=== PATIENT | male | born 1960 | race African-American/Black ===

== ENCOUNTER 2018-09-10 17:29 | Inpatient (IN) | payer OTHER ==
[2018-09-10 20:53] VITALS: BMI 39.9
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
[2018-09-10] MEDS ORDERED: MAGNESIUM HYDROX 2400MG/30ML ORAL SUSPENSION 30 ML CUP PO PRN (22:28)
[2018-09-10] MEDS ORDERED: MENTHOL/PHENOL 1 EACH UD MM PRN (22:28)
[2018-09-10] MEDS ORDERED: MAG HYDROX/AL HYDROX/SIMETH 30 ML UNIT-DOSE CUP PO PRN (22:28)
[2018-09-10] MEDS ORDERED: LOPERAMIDE HCL 2 MG CAPSULE PO PRN (22:28)
[2018-09-10] MEDS ORDERED: NICOTINE POLACRILEX 2 MG GUM BC PRN (22:28)
[2018-09-10] MEDS ORDERED: P-EPHED 60MG/TRIPROLIDI 2.5MG TABLET PO PRN (22:28)
[2018-09-10] MEDS ORDERED: guaiFENesin/D-METHORPHAN HB 10 ML UNIT-DOSE CUPS PO PRN (22:28)
[2018-09-10] MEDS ORDERED: MAGNESIUM CITRATE 300 ML BOTTLE PO PRN (22:28)
[2018-09-10] MEDS ORDERED: ALBUTEROL SO4 8 GM HFA INHALER IH PRN (22:30)
[2018-09-10] MEDS ORDERED: METHADONE HCL 10 MG TABLET (FOR DETOX USE ONLY) PO ONE ×2 (23:00→23:04)
[2018-09-10] MEDS: diazePAM 5 MG TABLET PO PRN (23:35)
[2018-09-11] MEDS: ACETAMINOPHEN 325 MG TABLET (FP) PO PRN (01:23)
[2018-09-11] MEDS: hydrOXYzine PAMOATE 50 MG CAPSULE (FP) PO PRN (01:23)
[2018-09-11] MEDS: diazePAM 5 MG TABLET PO PRN (07:47)
[2018-09-11] MEDS ORDERED: METHADONE HCL 10 MG TABLET (FOR DETOX USE ONLY) PO ONE (10:00)
[2018-09-11] MEDS ORDERED: METHOCARBAMOL 750 MG TABLET PO SCH (10:00)
[2018-09-11 10:34] LABS: HEMATOCRIT 40.6 % (35.4-49); HEMOGLOBIN 13.4 GM/dL (11.7-16.9); MEAN CELL VOLUME 84.9 fl (80-96); MEAN PLT VOLUME 10.3 fl (7.5-11.1); PLATELET COUNT 225 K/MM3 (134-434); RBC 4.79 M/mm3 (4.00-5.60); RDW 14.4 % (11.9-15.9); WHITE BLOOD COUNT 5.8 K/mm3 (4.0-10.0)
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
[2018-09-11 10:50] LABS: ALK PHOS 103 U/L (45-117); ANION GAP 8 MMOL/L (8-16); BILIRUBIN,TOTAL 0.3 mg/dL (0.2-1); BLOOD UREA NITROGEN 19 mg/dL (7-18); CALCIUM 8.3 mg/dL (8.5-10.1); CHLORIDE 111 mmol/L (98-107); CO2 26 mmol/L (21-32); CREATININE 0.9 mg/dL (0.55-1.3); GLUCOSE,RANDOM 98 mg/dL (74-106); POTASSIUM 4.1 mmol/L (3.5-5.1); SGOT/AST 13 U/L (15-37); SGPT/ALT 20 U/L (13-61); SODIUM 144 mmol/L (136-145); TOT PROT 6.3 g/dl (6.4-8.2)
[2018-09-11] MEDS: cloNIDine HCL 0.1 MG TABLET PO SCH ×2 (11:10→22:17)
[2018-09-11] MEDS: PRENATAL VITAMINS W/ FOLIC ACID TABLET (FP) PO SCH (11:10)
[2018-09-11] MEDS: DOCUSATE SODIUM 100 MG CAPSULE (FP) PO SCH ×2 (11:10→22:18)
[2018-09-11] MEDS: ASPIRIN 81 MG CHEWABLE TABLETS PO SCH (11:10)
[2018-09-11] MEDS: NICOTINE 21 MG/24 HOURS TOPICAL PATCH TD SCH (11:11)
[2018-09-11] MEDS: amLODIPine BESYLATE 10 MG TABLET (FP) PO SCH (11:11)
--- NOTE | 2018-09-11 11:33 | PN ---
[facility] CIWA - CIWA Score Nausea/Vomitin-No Nausea/No Vomiting Muscle Tremors: 1-None Visible, but [place] Anxiety: 0-No Anxiety, at Ease Agitation: 1-Slight > Activity Paroxysmal Sweats: 1-Minimal Palms Moist Orientation: 0-Oriented Tacttile Disturbances: 0-None Auditory Disturbances: 0-None Visual Disturbances: 0-None Headache: 0-None Present CIWA-Ar Total Score: 3 S COWS - Scale Resting Pulse: 0= [place] 80 or Below Sweatin= Chills/Flushing Restless Observation: 1= Difficult to Sit Still Pupil Size: 0= Normal to Room Light Bone or Joint Aches: 1= Mild Discomfort Runny Nose/ Eye Tearin= Nasal Congestion GI Upset > 30mins: 0= None Tremor Observation of Outstretched Hands: 1= Tremor [place], Not Seen Yawning Observation: 1= 1-2x During Session Anxiety or Irritability: 1=Feels Anxious/Irritable Goose Flesh Skin: 0=Smooth Skin COWS Score: 7 [facility] Progress Note (SOAP) Subjective: headache tremor body ache low energy Objective: 09/11/18 11:37 Vital Signs Temperature 97.2 F L 09/11/18 10:56 Pulse Rate 69 09/11/18 10:56 Respiratory Rate 19 09/11/18 10:56 Blood Pressure 156/101 H 09/11/18 10:56 O2 Sat by Pulse Oximetry (%) Laboratory Last Values WBC 5.8 K/mm3 (4.0-10.0) 09/11/18 07:44 RBC 4.79 M/mm3 (4.00-5.60) 09/11/18 07:44 Hgb 13.4 GM/dL (11.7-16.9) 09/11/18 07:44 Hct 40.6 % (35.4-49) 09/11/18 07:44 MCV 84.9 fl (80-96) 09/11/18 07:44 MCH 28.0 pg (25.7-33.7) 09/11/18 07:44 MCHC 33.0 g/dl (32.0-35.9) 09/11/18 07:44 RDW 14.4 % (11.9-15.9) D 09/11/18 07:44 Plt Count 225 K/MM3 (134-434) 09/11/18 07:44 MPV 10.3 fl (7.5-11.1) 09/11/18 07:44 Sodium 144 mmol/L (136-145) 09/11/18 07:44 Potassium 4.1 mmol/L (3.5-5.1) 09/11/18 07:44 Chloride 111 mmol/L (98-107) H 09/11/18 07:44 Carbon Dioxide 26 mmol/L (21-32) 09/11/18 07:44 Anion Gap 8 MMOL/L (8-16) 09/11/18 07:44 BUN 19 mg/dL (7-18) H 09/11/18 07:44 Creatinine 0.9 mg/dL (0.55-1.3) 09/11/18 07:44 Creat Clearance w eGFR > 60 (>60) 09/11/18 07:44 Random Glucose 98 mg/dL (74-106) 09/11/18 07:44 Calcium 8.3 mg/dL (8.5-10.1) L 09/11/18 07:44 Total Bilirubin 0.3 mg/dL (0.2-1) 09/11/18 07:44 AST 13 U/L (15-37) L 09/11/18 07:44 ALT 20 U/L (13-61) 09/11/18 07:44 Alkaline Phosphatase 103 U/L (45-117) 09/11/18 07:44 Total Protein 6.3 g/dl (6.4-8.2) L 09/11/18 07:44 Albumin 3.0 g/dl (3.4-5.0) L 09/11/18 07:44 lab noted Assessment: 09/11/18 11:38 withdrawal sx hypertension Plan: continue detox
--- NOTE | 2018-09-11 11:33 | EKG ---
Test Reason : Blood Pressure : / mmHG Vent. Rate : 076 BPM Atrial Rate : 076 BPM P-R Int : 164 ms QRS Dur : 104 ms QT Int : 408 ms P-R-T Axes : 017 055 036 degrees QTc Int : 459 ms NORMAL SINUS RHYTHM NORMAL ECG NO PREVIOUS ECGS AVAILABLE Confirmed by TRENT TONEY MD ([id number]) on 09/11/2018 11:33:32 AM Referred By: Christina Echevarria Confirmed By:TRENT TONEY MD
[2018-09-11] MEDS ORDERED: FLU VACCINE QUAD 60 MCG/0.5 ML (MDV 18-19) IM ONE (12:53)
[2018-09-11] MEDS: THIAMINE HCL 100 MG TABLET (FP) PO SCH (22:17)
[2018-09-11] MEDS: METHOCARBAMOL 500 MG TABLET PO SCH (22:18)
[2018-09-11] MEDS: MELATONIN 5 MG TABLETS PO PRN (22:19)
[2018-09-12] MEDS ORDERED: METHADONE HCL 5 MG TABLET (FOR DETOX USE ONLY) PO ONE (10:00)
[2018-09-12] MEDS: ASPIRIN 81 MG CHEWABLE TABLETS PO SCH (10:24)
[2018-09-12] MEDS: cloNIDine HCL 0.1 MG TABLET PO SCH ×2 (10:25→22:20)
[2018-09-12] MEDS: amLODIPine BESYLATE 10 MG TABLET (FP) PO SCH (10:25)
[2018-09-12] MEDS: DOCUSATE SODIUM 100 MG CAPSULE (FP) PO SCH ×2 (10:25→22:21)
[2018-09-12] MEDS: METHOCARBAMOL 500 MG TABLET PO SCH ×2 (10:25→22:20)
[2018-09-12] MEDS: PRENATAL VITAMINS W/ FOLIC ACID TABLET (FP) PO SCH (10:25)
[2018-09-12] MEDS: NICOTINE 21 MG/24 HOURS TOPICAL PATCH TD SCH (10:26)
[2018-09-12 11:02] LABS: URINE APPEARANCE CLEAR; URINE BILIRUBIN NEGATIVE (<2.0 mg/dL); URINE COLOR LTYELLOW; URINE GLUCOSE (UA) NEGATIVE (NEGATIVE); URINE KETONE NEGATIVE (NEGATIVE); URINE LEUK ESTERASE NEGATIVE (NEGATIVE); URINE NITRITE NEGATIVE (NEGATIVE); URINE PROTEIN NEGATIVE (NEGATIVE); URINE UROBILINOGEN NEGATIVE mg/dL (0.2-1.0)
[2018-09-12] MEDS: diazePAM 5 MG TABLET PO PRN ×2 (12:07→20:41)
--- NOTE | 2018-09-12 15:34 | PN ---
S CIWA - CIWA Score Nausea/Vomitin-No Nausea/No Vomiting Muscle Tremors: 1-None Visible, but [place] Anxiety: 1-Mildly Anxious Agitation: 1-Slight > Activity Paroxysmal Sweats: 1-Minimal Palms Moist Orientation: 0-Oriented Tacttile Disturbances: 0-None Auditory Disturbances: 0-None Visual Disturbances: 0-None Headache: 0-None Present CIWA-Ar Total Score: 4 [facility] COWS - Scale Resting Pulse: 0= [place] 80 or Below Sweatin= Chills/Flushing Restless Observation: 0= Sits Still Pupil Size: 0= Normal to Room Light Bone or Joint Aches: 1= Mild Discomfort Runny Nose/ Eye Tearin= Nasal Congestion GI Upset > 30mins: 0= None Tremor Observation of Outstretched Hands: 1= Tremor [place], Not Seen Yawning Observation: 1= 1-2x During Session Anxiety or Irritability: 1=Feels Anxious/Irritable Goose Flesh Skin: 0=Smooth Skin COWS Score: 6 S Progress Note (SOAP) Subjective: patient reported that when he is taking opiate based pain killer then he can walk patient moving around the unit with wheelchair no gi distress mild tremor no sweat fungal feet Objective: 09/12/18 15:32 Vital Signs Temperature 98.1 F 09/12/18 13:08 Pulse Rate 67 09/12/18 13:08 Respiratory Rate 20 09/12/18 13:08 Blood Pressure 110/69 09/12/18 13:08 O2 Sat by Pulse Oximetry (%) Laboratory Last Values WBC 5.8 K/mm3 (4.0-10.0) 09/11/18 07:44 RBC 4.79 M/mm3 (4.00-5.60) 09/11/18 07:44 Hgb 13.4 GM/dL (11.7-16.9) 09/11/18 07:44 Hct 40.6 % (35.4-49) 09/11/18 07:44 MCV 84.9 fl (80-96) 09/11/18 07:44 MCH 28.0 pg (25.7-33.7) 09/11/18 07:44 MCHC 33.0 g/dl (32.0-35.9) 09/11/18 07:44 RDW 14.4 % (11.9-15.9) D 09/11/18 07:44 Plt Count 225 K/MM3 (134-434) 09/11/18 07:44 MPV 10.3 fl (7.5-11.1) 09/11/18 07:44 Sodium 144 mmol/L (136-145) 09/11/18 07:44 Potassium 4.1 mmol/L (3.5-5.1) 09/11/18 07:44 Chloride 111 mmol/L (98-107) H 09/11/18 07:44 Carbon Dioxide 26 mmol/L (21-32) 09/11/18 07:44 Anion Gap 8 MMOL/L (8-16) 09/11/18 07:44 BUN 19 mg/dL (7-18) H 09/11/18 07:44 Creatinine 0.9 mg/dL (0.55-1.3) 09/11/18 07:44 Creat Clearance w eGFR > 60 (>60) 09/11/18 07:44 Random Glucose 98 mg/dL (74-106) 09/11/18 07:44 Calcium 8.3 mg/dL (8.5-10.1) L 09/11/18 07:44 Total Bilirubin 0.3 mg/dL (0.2-1) 09/11/18 07:44 AST 13 U/L (15-37) L 09/11/18 07:44 ALT 20 U/L (13-61) 09/11/18 07:44 Alkaline Phosphatase 103 U/L (45-117) 09/11/18 07:44 Total Protein 6.3 g/dl (6.4-8.2) L 09/11/18 07:44 Albumin 3.0 g/dl (3.4-5.0) L 09/11/18 07:44 Urine Color Ltyellow 09/12/18 08:00 Urine Appearance Clear 09/12/18 08:00 Urine pH 5.0 (5.0-8.0) 09/12/18 08:00 Ur Specific [place] 1.018 (1.010-1.035) 09/12/18 08:00 Urine Protein Negative (NEGATIVE) 09/12/18 08:00 Urine Glucose (UA) Negative (NEGATIVE) 09/12/18 08:00 Urine Ketones Negative (NEGATIVE) 09/12/18 08:00 Urine Blood Negative (NEGATIVE) 09/12/18 08:00 Urine Nitrite Negative (NEGATIVE) 09/12/18 08:00 Urine Bilirubin Negative (<2.0 mg/dL) 09/12/18 08:00 Urine Urobilinogen Negative mg/dL (0.2-1.0) 09/12/18 08:00 Ur Leukocyte Esterase Negative (NEGATIVE) 09/12/18 08:00 RPR Titer Nonreactive (NONREACTIVE) 09/11/18 07:44 lab noted Assessment: 09/12/18 15:33 withdrawal sx fungal feet Plan: continue detox clotrimazole cream to feet wheel chair as needed
[2018-09-12] MEDS: ACETAMINOPHEN 325 MG TABLET (FP) PO PRN (20:41)
[2018-09-12] MEDS: hydrOXYzine PAMOATE 50 MG CAPSULE (FP) PO PRN (20:42)
[2018-09-12] MEDS: THIAMINE HCL 100 MG TABLET (FP) PO SCH (22:20)
[2018-09-12] MEDS: CLOTRIMAZOLE 1% CREAM 15 GM TUBE TP SCH (22:21)
[2018-09-13] MEDS ORDERED: METHADONE HCL 5 MG TABLET (FOR DETOX USE ONLY) PO ONE (10:00)
[2018-09-13] MEDS: CLOTRIMAZOLE 1% CREAM 15 GM TUBE TP SCH ×2 (10:09→23:08)
[2018-09-13] MEDS: NICOTINE 21 MG/24 HOURS TOPICAL PATCH TD SCH (10:09)
[2018-09-13] MEDS: ASPIRIN 81 MG CHEWABLE TABLETS PO SCH (10:10)
[2018-09-13] MEDS: cloNIDine HCL 0.1 MG TABLET PO SCH ×2 (10:10→23:07)
[2018-09-13] MEDS: DOCUSATE SODIUM 100 MG CAPSULE (FP) PO SCH ×2 (10:10→23:07)
[2018-09-13] MEDS: amLODIPine BESYLATE 10 MG TABLET (FP) PO SCH (10:10)
[2018-09-13] MEDS: PRENATAL VITAMINS W/ FOLIC ACID TABLET (FP) PO SCH (10:10)
[2018-09-13] MEDS: METHOCARBAMOL 500 MG TABLET PO SCH (10:10)
--- NOTE | 2018-09-13 10:37 | PN ---
[facility] Progress Note (SOAP) Subjective: chronic knee pain body aches sweats interrupted sleep chills Objective: 09/13/18 10:36 Vital Signs Temperature 98.8 F 09/13/18 09:46 Pulse Rate 72 09/13/18 09:46 Respiratory Rate 20 09/13/18 09:46 Blood Pressure 145/85 09/13/18 09:46 O2 Sat by Pulse Oximetry (%) Laboratory Tests 09/11/18 09/11/18 09/11/18 07:44 07:44 07:44 WBC 5.8 RBC 4.79 Hgb 13.4 Hct 40.6 MCV 84.9 MCH 28.0 MCHC 33.0 RDW 14.4 D Plt Count 225 MPV 10.3 Sodium 144 Potassium 4.1 Chloride 111 H Carbon Dioxide 26 Anion Gap 8 BUN 19 H Creatinine 0.9 Creat Clearance w eGFR > 60 Random Glucose 98 Calcium 8.3 L Total Bilirubin 0.3 AST 13 L ALT 20 Alkaline Phosphatase 103 Total Protein 6.3 L Albumin 3.0 L Urine Color Urine Appearance Urine pH Ur Specific [place] Urine Protein Urine Glucose (UA) Urine Ketones Urine Blood Urine Nitrite Urine Bilirubin Urine Urobilinogen Ur Leukocyte Esterase RPR Titer Nonreactive 09/12/18 08:00 WBC RBC Hgb Hct MCV MCH MCHC RDW Plt Count MPV Sodium Potassium Chloride Carbon Dioxide Anion Gap BUN Creatinine Creat Clearance w eGFR Random Glucose Calcium Total Bilirubin AST ALT Alkaline Phosphatase Total Protein Albumin Urine Color Ltyellow Urine Appearance Clear Urine pH 5.0 Ur Specific [place] 1.018 Urine Protein Negative Urine Glucose (UA) Negative Urine Ketones Negative Urine Blood Negative Urine Nitrite Negative Urine Bilirubin Negative Urine Urobilinogen Negative Ur Leukocyte Esterase Negative RPR Titer aaox3 ambulating no acute distress Assessment: 09/13/18 10:36 withdrawal sx Plan: continue detox increase fluids lidocaine patch ordered pt will continue with robaxin as ordered
[2018-09-13] MEDS ORDERED: LIDOCAINE 5% TOPICAL PATCH TP SCH (10:45)
[2018-09-13] MEDS: LIDOCAINE 5% TOPICAL PATCH TP SCH (12:39)
[2018-09-13] MEDS: diazePAM 5 MG TABLET PO PRN (17:34)
[2018-09-13] MEDS ORDERED: LIDOCAINE PATCH REMOVAL MC SCH ×2 (22:00)
[2018-09-13] MEDS: THIAMINE HCL 100 MG TABLET (FP) PO SCH (23:07)
[2018-09-13] MEDS: LIDOCAINE PATCH REMOVAL MC SCH (23:08)
[2018-09-13] MEDS: hydrOXYzine PAMOATE 50 MG CAPSULE (FP) PO PRN (23:18)
[2018-09-13] MEDS: MELATONIN 5 MG TABLETS PO PRN (23:18)
[2018-09-14] MEDS: hydrOXYzine PAMOATE 50 MG CAPSULE (FP) PO PRN (06:22)
[2018-09-14] MEDS: CYCLOBENZAPRINE HCL 10 MG TABLET (FP) PO PRN ×2 (06:22→23:53)
[2018-09-14] MEDS: IBUPROFEN 400 MG TABLET (FP) PO PRN ×2 (06:22→23:53)
[2018-09-14] MEDS ORDERED: METHADONE HCL 10 MG TABLET (FOR DETOX USE ONLY) PO ONE (10:00)
[2018-09-14] MEDS: cloNIDine HCL 0.1 MG TABLET PO SCH ×2 (10:43→23:50)
[2018-09-14] MEDS: DOCUSATE SODIUM 100 MG CAPSULE (FP) PO SCH ×2 (10:44→23:50)
[2018-09-14] MEDS: amLODIPine BESYLATE 10 MG TABLET (FP) PO SCH (10:44)
[2018-09-14] MEDS: CLOTRIMAZOLE 1% CREAM 15 GM TUBE TP SCH ×2 (10:44→23:49)
[2018-09-14] MEDS: PRENATAL VITAMINS W/ FOLIC ACID TABLET (FP) PO SCH (10:44)
[2018-09-14] MEDS: ASPIRIN 81 MG CHEWABLE TABLETS PO SCH (10:44)
[2018-09-14] MEDS: LIDOCAINE 5% TOPICAL PATCH TP SCH (10:47)
[2018-09-14] MEDS: NICOTINE 21 MG/24 HOURS TOPICAL PATCH TD SCH (10:47)
--- NOTE | 2018-09-14 15:21 | PN ---
[facility] Progress Note (SOAP) Subjective: feeling better no tremor less sweat no body aches ambulate with wheelchair Objective: 09/14/18 15:20 Vital Signs Temperature 97.7 F 09/14/18 14:00 Pulse Rate 73 09/14/18 14:00 Respiratory Rate 18 09/14/18 14:00 Blood Pressure 134/71 09/14/18 14:00 O2 Sat by Pulse Oximetry (%) Laboratory Last Values WBC 5.8 K/mm3 (4.0-10.0) 09/11/18 07:44 RBC 4.79 M/mm3 (4.00-5.60) 09/11/18 07:44 Hgb 13.4 GM/dL (11.7-16.9) 09/11/18 07:44 Hct 40.6 % (35.4-49) 09/11/18 07:44 MCV 84.9 fl (80-96) 09/11/18 07:44 MCH 28.0 pg (25.7-33.7) 09/11/18 07:44 MCHC 33.0 g/dl (32.0-35.9) 09/11/18 07:44 RDW 14.4 % (11.9-15.9) D 09/11/18 07:44 Plt Count 225 K/MM3 (134-434) 09/11/18 07:44 MPV 10.3 fl (7.5-11.1) 09/11/18 07:44 Sodium 144 mmol/L (136-145) 09/11/18 07:44 Potassium 4.1 mmol/L (3.5-5.1) 09/11/18 07:44 Chloride 111 mmol/L (98-107) H 09/11/18 07:44 Carbon Dioxide 26 mmol/L (21-32) 09/11/18 07:44 Anion Gap 8 MMOL/L (8-16) 09/11/18 07:44 BUN 19 mg/dL (7-18) H 09/11/18 07:44 Creatinine 0.9 mg/dL (0.55-1.3) 09/11/18 07:44 Creat Clearance w eGFR > 60 (>60) 09/11/18 07:44 Random Glucose 98 mg/dL (74-106) 09/11/18 07:44 Calcium 8.3 mg/dL (8.5-10.1) L 09/11/18 07:44 Total Bilirubin 0.3 mg/dL (0.2-1) 09/11/18 07:44 AST 13 U/L (15-37) L 09/11/18 07:44 ALT 20 U/L (13-61) 09/11/18 07:44 Alkaline Phosphatase 103 U/L (45-117) 09/11/18 07:44 Total Protein 6.3 g/dl (6.4-8.2) L 09/11/18 07:44 Albumin 3.0 g/dl (3.4-5.0) L 09/11/18 07:44 Urine Color Ltyellow 09/12/18 08:00 Urine Appearance Clear 09/12/18 08:00 Urine pH 5.0 (5.0-8.0) 09/12/18 08:00 Ur Specific [place] 1.018 (1.010-1.035) 09/12/18 08:00 Urine Protein Negative (NEGATIVE) 09/12/18 08:00 Urine Glucose (UA) Negative (NEGATIVE) 09/12/18 08:00 Urine Ketones Negative (NEGATIVE) 09/12/18 08:00 Urine Blood Negative (NEGATIVE) 09/12/18 08:00 Urine Nitrite Negative (NEGATIVE) 09/12/18 08:00 Urine Bilirubin Negative (<2.0 mg/dL) 09/12/18 08:00 Urine Urobilinogen Negative mg/dL (0.2-1.0) 09/12/18 08:00 Ur Leukocyte Esterase Negative (NEGATIVE) 09/12/18 08:00 RPR Titer Nonreactive (NONREACTIVE) 09/11/18 07:44 lab noted Assessment: 09/14/18 15:21 mild withdrawal sx Plan: medically supervised detox
[2018-09-14] MEDS: LIDOCAINE PATCH REMOVAL MC SCH (23:49)
[2018-09-14] MEDS: THIAMINE HCL 100 MG TABLET (FP) PO SCH (23:49)
[2018-09-14] MEDS: MELATONIN 5 MG TABLETS PO PRN (23:53)
[2018-09-15] MEDS ORDERED: METHADONE HCL 5 MG TABLET (FOR DETOX USE ONLY) PO ONE (06:00)
[2018-09-15 07:30] VITALS: TEMP 97.5
[2018-09-15 09:52] VITALS: BP 133/76; PULSE 76
--- NOTE | 2018-09-15 14:19 | DS ---
[facility] Detox Discharge Summary Admission Date: 09/10/18 Discharge Date: 09/15/18 - History Present History: Alcohol Dependence, Opioid Dependence Additional Comments: 58 years old male admitted on 09/10/18 for alcohol and opiate withdrawal sx completed detox regimen tolerated well denies alcohol opiate withdrawal sx alert oriented x 3 no acute distress aftercare revelation patient wants to go home today - Physical Exam Results Vital Signs: Vital Signs Temperature 97.5 F L 09/15/18 08:55 Pulse Rate 76 09/15/18 08:55 Respiratory Rate 18 09/15/18 08:55 Blood Pressure 133/76 09/15/18 08:55 O2 Sat by Pulse Oximetry (%) Pertinent Admission Physical Exam Findings: alcohol and opiate withdrawal sx Vital Signs Temperature 97.5 F L 09/15/18 08:55 Pulse Rate 76 09/15/18 08:55 Respiratory Rate 18 09/15/18 08:55 Blood Pressure 133/76 09/15/18 08:55 O2 Sat by Pulse Oximetry (%) Laboratory Last Values WBC 5.8 K/mm3 (4.0-10.0) 09/11/18 07:44 RBC 4.79 M/mm3 (4.00-5.60) 09/11/18 07:44 Hgb 13.4 GM/dL (11.7-16.9) 09/11/18 07:44 Hct 40.6 % (35.4-49) 09/11/18 07:44 MCV 84.9 fl (80-96) 09/11/18 07:44 MCH 28.0 pg (25.7-33.7) 09/11/18 07:44 MCHC 33.0 g/dl (32.0-35.9) 09/11/18 07:44 RDW 14.4 % (11.9-15.9) D 09/11/18 07:44 Plt Count 225 K/MM3 (134-434) 09/11/18 07:44 MPV 10.3 fl (7.5-11.1) 09/11/18 07:44 Sodium 144 mmol/L (136-145) 09/11/18 07:44 Potassium 4.1 mmol/L (3.5-5.1) 09/11/18 07:44 Chloride 111 mmol/L (98-107) H 09/11/18 07:44 Carbon Dioxide 26 mmol/L (21-32) 09/11/18 07:44 Anion Gap 8 MMOL/L (8-16) 09/11/18 07:44 BUN 19 mg/dL (7-18) H 09/11/18 07:44 Creatinine 0.9 mg/dL (0.55-1.3) 11 07:44 Creat Clearance w eGFR > 60 (>60) 09/11/18 07:44 Random Glucose 98 mg/dL (74-106) 09/11/18 07:44 Calcium 8.3 mg/dL (8.5-10.1) L 09/11/18 07:44 Total Bilirubin 0.3 mg/dL (0.2-1) 09/11/18 07:44 AST 13 U/L (15-37) L 09/11/18 07:44 ALT 20 U/L (13-61) 09/11/18 07:44 Alkaline Phosphatase 103 U/L (45-117) 09/11/18 07:44 Total Protein 6.3 g/dl (6.4-8.2) L 09/11/18 07:44 Albumin 3.0 g/dl (3.4-5.0) L 09/11/18 07:44 Urine Color Ltyellow 09/12/18 08:00 Urine Appearance Clear 09/12/18 08:00 Urine pH 5.0 (5.0-8.0) 09/12/18 08:00 Ur Specific [place] 1.018 (1.010-1.035) 09/12/18 08:00 Urine Protein Negative (NEGATIVE) 09/12/18 08:00 Urine Glucose (UA) Negative (NEGATIVE) 09/12/18 08:00 Urine Ketones Negative (NEGATIVE) 09/12/18 08:00 Urine Blood Negative (NEGATIVE) 09/12/18 08:00 Urine Nitrite Negative (NEGATIVE) 09/12/18 08:00 Urine Bilirubin Negative (<2.0 mg/dL) 09/12/18 08:00 Urine Urobilinogen Negative mg/dL (0.2-1.0) 09/12/18 08:00 Ur Leukocyte Esterase Negative (NEGATIVE) 09/12/18 08:00 RPR Titer Nonreactive (NONREACTIVE) 11/04/18 07:44 lab noted - Treatment Hospital Course: Detox Protocol Followed, Detoxed Safely, Responded well, Discharged Condition Good, Rehab Referral Accepted Patient has Accepted a Rehab Referral to: [facility] - Medication Discharge Medications: Ambulatory Orders Aspirin 81 mg PO DAILY 09/10/18 Baclofen 20 mg PO TID 09/10/18 Docusate Sodium [Colace] 100 mg PO BID 09/10/18 Methocarbamol [Robaxin -] 750 mg PO BID 09/10/18 Albuterol Sulfate Inhaler - [Ventolin HFA Inhaler -] 1 puff IH PRN #1 inhaler Amlodipine Besylate [Norvasc -] 10 mg PO DAILY #14 tablet 09/14/18 cloNIDine HCL [Catapres -] 0.3 mg PO BID #14 tablet 09/14/18 - Diagnosis (1) Opioid dependence with withdrawal Status: Acute (2) Uncomplicated alcohol dependence Status: Acute (3) HTN (hypertension) Status: Chronic Qualifiers: Hypertension type: essential hypertension Qualified Code(s): I10 - Essential (primary) hypertension (4) Substance induced mood disorder Status: Suspected - AMA Did Patient Leave Against Medical Advice: No
== END 2018-09-15 09:00 | disposition home or self-care (01) | DRG 773 ==
LOC: YASAS 17:29 → Y6N 21:59
PROC: HZ2ZZZZ Detoxification Services for Substance Abuse Treatment (ICD-10-PCS; principal; 2018-09-10)
DX: F11.23 Opioid dependence with withdrawal (principal); F10.230 Alcohol dependence with withdrawal, uncomplicated; F13.230 Sedative, hypnotic or anxiolytic dependence with withdrawal, uncomplicated; F12.10 Cannabis abuse, uncomplicated; F17.210 Nicotine dependence, cigarettes, uncomplicated; F19.24 Other psychoactive substance dependence with psychoactive substance-induced mood disorder; F19.282 Other psychoactive substance dependence with psychoactive substance-induced sleep disorder; I10 Essential (primary) hypertension; B35.1 Tinea unguium; E66.9 Obesity, unspecified; Z68.39 Body mass index [BMI] 39.0-39.9, adult; Z99.3 Dependence on wheelchair; Z87.438 Personal history of other diseases of male genital organs; Z59.0 Homelessness
CPT/HCPCS: 36415; 80053; 81003; 85027; 86593; 93005; 93010; J0735

== ENCOUNTER 2018-11-15 13:40 | Inpatient (IN) | payer OTHER ==
--- NOTE | 2018-11-15 14:58 | HP ---
Screened but not Admitted - Documentation of Visit Screened but not Admitted: Yes Level of Care Recommended at this Time: ER Evaluation/Care Additional Information/Explanation: this 58 years old male present in [facility] for evaluation. patient has alter mental status bp 141/69,p67,r18,t98.5,puse ox 90% . pupil constricted both side,. narcan 0.8 mg im given. patient to be transfer to [facility] for evaluation and stabilization. case endorsed to by
[2018-11-15 23:55] VITALS: BMI 38.5
--- NOTE | 2018-11-16 | HP ---
COWS - Scale Resting Pulse: 0= ID 80 or Below Sweatin=Flushed/Facial Moisture Restless Observation: 5= Unable to Sit Still Pupil Size: 0= Normal to Room Light Bone or Joint Aches: 4=Acute Joint/Muscle Pain Runny Nose/ Eye Tearin= Runny Nose/Eyes GI Upset > 30mins: 0= None Tremor Observation: 0= None Yawning Observation: 0= None Anxiety or Irritability: 2=Irritable/Anxious Goose Flesh Skin: 0=Smooth Skin COWS Score: 15 CIWA Score Nausea/Vomitin-No Nausea/No Vomiting Muscle Tremors: None Anxiety: 4-Mod. Anxious/Guarded Agitation: 4-Moderately Restless Paroxysmal Sweats: 3 Orientation: 0-Oriented Tacttile Disturbances: 0-None Auditory Disturbances: 1-Very Mild Visual Disturbances: 2-Mild Sensitivity Headache: 2-Mild CIWA-Ar Total Score: 16 - Admission Criteria [facility] Guidelines: Admission for Medically Managed Detox: Requires at least one of the followin. CIWA greater than 12 2. Seizures within the past 24 hours 3. Delirium tremens within the past 24 hours 4. Hallucinations within the past 24 hours 5. Acute intervention needed for co occurring medical disorder 6. Acute intervention needed for co occurring psychiatric disorder 7. Severe withdrawal that cannot be handled at a lower level of care (continued vomiting, continued diarrhea, abnormal vital signs) requiring intravenous medication and/or fluids 8. Admission [facility] Chief Complaint: c/o withdraWAL SX'S. SEEKING DETOX TXMENT Allergies/Adverse Reactions: Allergies Allergy/AdvReac Type Severity Reaction Status Date / Time No Known Allergies Allergy Verified 11/16/18 00:54 History of Present Illness: 58 Y.O. MALE WITH POLYSUBSTANCE ABUSE RETURNS FROM ER AFTER BEING SENT THEIR EARLIER FOR ? OVERDOSE/INTOXICATION. THE CLIENT HAS SINCE BEEN STABILIZED AND RETURNED FOR TXMENT. CLIENT IS KNOWN TO THIS PROGRAM. SELF REFERRED. C/O WORSENING WITHDRAWAL SX'S COWS/15/CIWA 16. REPORTS LONGEST CLEAN TIME 3 YEARS WHILE INCARCERATED. DENIES RECENT CLEAN TIME. DENIES PAST/ PRESENT SI/HI/AVH. DENIES SEIZURES. HOMELESS,UNEMPLOYED, DENIES LEGALS. PMHX- DJD, HTN, PSYCH- ANXIETY, DEPRESSION, MEDS- NORVASC 10, CLONIDINE .3MG Exam Limitations: Physical Impairment (DJD WC BOUND) - Ebola screening Have you traveled outside of the country in the last 21 days: No Have you had contact with anyone from an Ebola affected area: No Do you have a fever: No - Review of Systems Constitutional: Chills, Night Sweats EENT: reports: Dental Problems (MISSING TEETH), Other (DRY EYES) Respiratory: reports: No Symptoms reported Cardiac: reports: No Symptoms Reported GI: reports: Poor Appetite, Poor Fluid Intake : reports: Frequency Musculoskeletal: reports: Back Pain, Joint Pain, Muscle Weakness Integumentary: reports: No Symptoms Reported Neuro: reports: Headache, Weakness, Unsteady Gait Endocrine: reports: No Symptoms Reported Hematology: reports: No Symptoms Reported Psychiatric: reports: Anxious, Depressed Other Systems: Reviewed and Negative Patient History - Patient Medical History Hx Anemia: No Hx Asthma: No Hx Chronic Obstructive Pulmonary Disease (COPD): No Hx Cancer: No Hx Cardiac Disorders: No Hx Congestive Heart Failure: No Hx Hypertension: Yes (ON MEDS) Hx Hypercholesterolemia: No Hx Pacemaker: No HX Cerebrovascular Accident: No Hx Seizures: No Hx Dementia: No Hx Diabetes: No Hx Gastrointestinal Disorders: No Hx Liver Disease: No Hx Genitourinary Disorders: No Hx Sexually Transmitted Disorders: Yes (GONORRHEA AT AGE OF 18) Hx Renal Disease (ESRD): No Hx Thyroid Disease: No Hx Human Immunodeficiency Virus (HIV): No Hx Hepatitis C: No Hx Depression: Yes Hx Suicide Attempt: No Hx Bipolar Disorder: No Hx Schizophrenia: No Other Medical History: DJD - Patient Surgical History Past Surgical History: Yes Hx Neurologic Surgery: No Hx Cataract Extraction: No Hx Cardiac Surgery: No Hx Lung Surgery: Yes (COLLAPSE LT LUNG 1987) Hx Breast Surgery: No Hx Breast Biopsy: No Hx Abdominal Surgery: No Hx Appendectomy: No Hx Cholecystectomy: No Hx Genitourinary Surgery: No Hx Section: No Hx Orthopedic Surgery: No Anesthesia Reaction: No - PPD History Previous Implant?: Yes Documented Results: Negative w/proof Implanted On Prior R Admission?: Yes Date: 09/12/18 Results: 0MM PPD to be Administered?: No - Smoking Cessation Smoking history: Current every day smoker Have you smoked in the past 12 months: Yes Aproximately how many cigarettes per day: 15 Cigars Per Day: 0 Hx Chewing Tobacco Use: No Initiated information on smoking cessation: Yes 'Breaking Loose' booklet given: 11/16/18 - Substance & Tx. History Hx Alcohol Use: Yes Hx Substance Use: Yes Substance Use Type: Alcohol, Cocaine, Heroin, Marijuana Hx Substance Use Treatment: Yes ([facility]) - Substances Abused HEROIN Route: Injection Frequency: 3-6 times per week Amount used: 15 Age of first use: 28 Date of Last Use: 11/14/18 AUGUSTO Route: Oral Frequency: Daily Amount used: 2 PINTS Age of first use: 16 Date of Last Use: 11/14/18 COCAINE Route: Injection Frequency: Daily Amount used: $1000 Age of first use: 28 Date of Last Use: 11/14/18 Family Disease History - Family Disease History Family Disease History: Other: Brother (DRUGS), Sister (DRUGS) Admission Physical Exam [facility] - Physical General Appearance: Yes: Disheveled, Obese, Irritable, Other (FALING ASLEEP DURING THE INTERVIEW/ EASILY AROUSABLE WITH VERBAL STIMULI) HEENTM: Yes: EOMI, Normocephalic, Normal Voice, Pharynx Normal, Other (VERY SMALL PUPILS ( ALL MOST [place] LIKE)) Respiratory: Yes: Chest Non-Tender, Lungs Clear, No Respiratory Distress, No Accessory Muscle Use Neck: Yes: No masses,lesions,Nodules, Supple, Trachea in good position Breast: Yes: Breast Exam Deferred Cardiology: Yes: Regular Rhythm, Regular Rate, S1, S2 Abdominal: Yes: Non Tender, Soft, Increased Bowel Sounds, Protuberent Genitourinary: Yes: Frequency, Polyuria (REPORTS) Back: Yes: Normal Inspection Musculoskeletal: Yes: Joint Stiffness, Other (W/C BOUND) Extremities: Yes: Non-Tender, Pedal Edema (BLLE), Other (LIMITED ROM 2/2 JOINT PAIN) Neurological: Yes: Fully Oriented, Alert Integumentary: Yes: Normal Color, Dry, Warm, Pitting Edema (BLLE 2+) Lymphatic: Yes: Within Normal Limits - Diagnostic (1) IVDU (intravenous drug user) Current Visit: Yes Status: Acute (2) DJD (degenerative joint disease) Current Visit: Yes Status: Acute (3) Alcohol dependence with uncomplicated withdrawal Current Visit: Yes Status: Acute (4) Cocaine abuse, uncomplicated Current Visit: Yes Status: Chronic (5) Opioid dependence with withdrawal Current Visit: Yes Status: Acute (6) Polysubstance abuse Current Visit: Yes Status: Acute (7) HTN (hypertension) Current Visit: Yes Status: Chronic Qualifiers: Hypertension type: essential hypertension Qualified Code(s): I10 - Essential (primary) hypertension (8) History of asthma Current Visit: Yes Status: Chronic (9) Impaired mobility Current Visit: Yes Status: Chronic (10) Nicotine dependence Current Visit: Yes Status: Chronic Qualifiers: Nicotine product type: cigarettes Substance use status: uncomplicated Qualified Code(s): F17.210 - Nicotine dependence, cigarettes, uncomplicated (11) Obese Current Visit: Yes Status: Chronic Qualifiers: Obesity classification: adult class 2 (BMI 35 - 39.9) (12) Unsteady gait Current Visit: Yes Status: Chronic (13) Wheelchair bound Current Visit: Yes Status: Chronic (14) Substance induced mood disorder Current Visit: Yes Status: Chronic Cleared for Admission [facility] - Detox or Rehab [facility] Level of Care: Medically Managed Detox Regimen/Protocol: Methadone/Librium (WILL START ADJUST METHADONE REGIMEN 2 /2 ?OVERDOSE AND PINPOINT LIKE PUPILS DESPITE COWS SCORE. HOLD LIBRIUM FOR OVERSEDATION) Claeared for Rehab Admission: No S Breath Alcohol Content Breath Alcohol Content: 0
[2018-11-16] MEDS ORDERED: hydrOXYzine PAMOATE 50 MG CAPSULE (FP) PO PRN (00:29)
[2018-11-16] MEDS ORDERED: P-EPHED 60MG/TRIPROLIDI 2.5MG TABLET PO PRN (00:29)
[2018-11-16] MEDS ORDERED: MAGNESIUM CITRATE 300 ML BOTTLE PO PRN (00:29)
[2018-11-16] MEDS ORDERED: MAGNESIUM HYDROX 2400MG/30ML ORAL SUSPENSION 30 ML CUP PO PRN (00:29)
[2018-11-16] MEDS ORDERED: ACETAMINOPHEN 325 MG TABLET (FP) PO PRN (00:29)
[2018-11-16] MEDS ORDERED: LOPERAMIDE HCL 2 MG CAPSULE PO PRN (00:29)
[2018-11-16] MEDS ORDERED: IBUPROFEN 400 MG TABLET (FP) PO PRN (00:29)
[2018-11-16] MEDS ORDERED: NICOTINE POLACRILEX 4 MG GUM BC PRN (00:29)
[2018-11-16] MEDS ORDERED: guaiFENesin/D-METHORPHAN HB 10 ML UNIT-DOSE CUPS PO PRN (00:29)
[2018-11-16] MEDS ORDERED: MENTHOL/PHENOL 1 EACH UD MM PRN (00:29)
[2018-11-16] MEDS ORDERED: MAG HYDROX/AL HYDROX/SIMETH 30 ML UNIT-DOSE CUP PO PRN (00:29)
[2018-11-16] MEDS ORDERED: cloNIDine HCL 0.1 MG TABLET PO ONE (00:40)
[2018-11-16] MEDS: chlordiazePOXIDE HCL 25 MG CAPSULE PO PRN ×2 (01:01→07:20)
[2018-11-16] MEDS ORDERED: PATIENT'S OWN MEDICATION (NON-FORMULARY) (Baclofen [Baclofen] 20 MG) PO SCH (06:00)
[2018-11-16] MEDS: chlordiazePOXIDE HCL 25 MG CAPSULE PO SCH ×4 (06:44→22:21)
--- NOTE | 2018-11-16 07:50 | PN ---
S Progress Note Note: CLIENT SEEN OOB THIS MORNING SELF PROPELLING IN WC. A/O X3 C/O WITHDRAWAL SX'S REQUESTING MEDS. UNEVENTFUL OVERNIGHT, SLEPT QUIETLY Last Vital Signs Temp Pulse Resp BP Pulse Ox 97 F L 65 20 160/95 11/16/18 06:21 11/16/18 06:21 11/16/18 06:21 11/16/18 06:21
[2018-11-16] MEDS ORDERED: METHADONE HCL 10 MG TABLET (FOR DETOX USE ONLY) PO ONE (10:00)
[2018-11-16 10:04] LABS: ALK PHOS 96 U/L (45-117); ANION GAP 7 MMOL/L (8-16); BILIRUBIN,TOTAL 0.4 mg/dL (0.2-1); BLOOD UREA NITROGEN 19 mg/dL (7-18); CALCIUM 8.7 mg/dL (8.5-10.1); CHLORIDE 109 mmol/L (98-107); CO2 27 mmol/L (21-32); CREATININE 0.9 mg/dL (0.55-1.3); GLUCOSE,RANDOM 83 mg/dL (74-106); POTASSIUM 4.4 mmol/L (3.5-5.1); SGOT/AST 12 U/L (15-37); SGPT/ALT 16 U/L (13-61); SODIUM 143 mmol/L (136-145); TOT PROT 6.2 g/dl (6.4-8.2)
[2018-11-16 10:25] LABS: HEMATOCRIT 40.8 % (35.4-49); HEMOGLOBIN 12.5 GM/dL (11.7-16.9); MCHC 30.7 g/dl (32.0-35.9); MEAN CELL VOLUME 84.8 fl (80-96); MEAN PLT VOLUME 10.4 fl (7.5-11.1); PLATELET COUNT 207 K/MM3 (134-434); RBC 4.82 M/mm3 (4.00-5.60); WHITE BLOOD COUNT 5.7 K/mm3 (4.0-10.0)
[2018-11-16] MEDS: amLODIPine BESYLATE 10 MG TABLET (FP) PO SCH (10:44)
[2018-11-16] MEDS: METHOCARBAMOL 750 MG TABLET PO SCH ×2 (10:44→22:21)
[2018-11-16] MEDS: HYDROCHLOROTHIAZIDE 25 MG TABLET (FP) PO SCH (10:44)
[2018-11-16] MEDS: DOCUSATE SODIUM 100 MG CAPSULE (FP) PO SCH ×2 (10:44→22:21)
[2018-11-16] MEDS: PRENATAL VITAMINS W/ FOLIC ACID TABLET (FP) PO SCH (10:44)
[2018-11-16] MEDS: NICOTINE 21 MG/24 HOURS TOPICAL PATCH TD SCH (10:45)
--- NOTE | 2018-11-16 11:35 | PN ---
S CIWA - CIWA Score Nausea/Vomitin-Mild Nausea/No Vomiting Muscle Tremors: None Anxiety: 4-Mod. Anxious/Guarded Agitation: 0-Normal Activity Paroxysmal Sweats: 2 Orientation: 0-Oriented Tacttile Disturbances: 3-Moderate Itch/Numb/Burn Auditory Disturbances: 0-None Visual Disturbances: 0-None Headache: 0-None Present CIWA-Ar Total Score: 10 BHS COWS - Scale Resting Pulse: 0= PA 80 or Below Sweatin=Flushed/Facial Moisture Restless Observation: 0= Sits Still Pupil Size: 1= Pupils >than Normal Bone or Joint Aches: 2= Severe Diffuse Aches Runny Nose/ Eye Tearin= None GI Upset > 30mins: 2= Nausea/Diarrhea Tremor Observation of Outstretched Hands: 0= None Yawning Observation: 1= 1-2x During Session Anxiety or Irritability: 2=Irritable/Anxious Goose Flesh Skin: 0=Smooth Skin COWS Score: 10 BHS Progress Note (SOAP) Subjective: PATIENT C/O ANXIETY, SWEATING, FEELING TIRED AND BURNING SENSATION TO FEET. Objective: 11/16/18 12:09 Vital Signs Temperature 98.1 F 11/16/18 09:15 Pulse Rate 77 11/16/18 09:15 Respiratory Rate 20 11/16/18 09:15 Blood Pressure 167/99 11/16/18 09:15 O2 Sat by Pulse Oximetry (%) Laboratory Tests 11/16/18 11/16/18 11/16/18 07:00 07:00 07:00 WBC 5.7 RBC 4.82 Hgb 12.5 Hct 40.8 MCV 84.8 MCH 26.0 MCHC 30.7 L RDW 15.0 Plt Count 207 MPV 10.4 Sodium 143 Potassium 4.4 Chloride 109 H Carbon Dioxide 27 Anion Gap 7 L BUN 19 H Creatinine 0.9 Creat Clearance w eGFR > 60 Random Glucose 83 Calcium 8.7 Total Bilirubin 0.4 AST 12 L ALT 16 Alkaline Phosphatase 96 Total Protein 6.2 L Albumin 3.0 L RPR Titer Nonreactive PE: ALERT AND ORIENTED X 3 SKIN WARM, MILD MOISTURE TO FOREHEAD CAR S1S2 RESP CTA BL EXT BLE +2 EDEMA +IRRITABLE/ANXIETY Assessment: 11/16/18 12:10 WITHDRAWAL SX Plan: CONTINUE DETOX ENCOURAGE ORAL FLUIDS CONTINUE TO MONITOR CLINICALLY
[2018-11-16 14:51] LABS: URINE APPEARANCE CLEAR; URINE BILIRUBIN NEGATIVE (<2.0 mg/dL); URINE COLOR YELLOW; URINE GLUCOSE (UA) NEGATIVE (NEGATIVE); URINE KETONE NEGATIVE (NEGATIVE); URINE LEUK ESTERASE NEGATIVE (NEGATIVE); URINE NITRITE NEGATIVE (NEGATIVE); URINE PROTEIN NEGATIVE (NEGATIVE); URINE UROBILINOGEN NEGATIVE mg/dL (0.2-1.0)
[2018-11-16] MEDS ORDERED: TRIMETHOBENZAMIDE HCL 200MG/2ML INJ IM ONE (16:30)
[2018-11-16] MEDS: cloNIDine HCL 0.1 MG TABLET PO PRN (17:09)
[2018-11-16] MEDS ORDERED: THIAMINE HCL 100 MG TABLET (FP) PO SCH (22:00)
[2018-11-16] MEDS ORDERED: MELATONIN 5 MG TABLETS PO PRN (22:00)
[2018-11-17] MEDS: chlordiazePOXIDE HCL 25 MG CAPSULE PO SCH ×2 (06:09→10:30)
[2018-11-17] MEDS: cloNIDine HCL 0.1 MG TABLET PO PRN (06:36)
--- NOTE | 2018-11-17 09:20 | CONSULT ---
[facility] Psychiatric Consult - Data Date of interview: 11/17/18 Admission source: [facility] Identifying data: Voice Teacher approached patient for psychiatric consultation. Patient refused, " Stated i don't need to speak to you right now." Consultation deferred. Nursing staff informed. Substance Abuse History: - Smoking Cessation. Smoking history: Current every day smoker. Have you smoked in the past 12 months: Yes. Aproximately how many cigarettes per day: 15. Cigars Per Day: 0. Hx Chewing Tobacco Use: No. Initiated information on smoking cessation: Yes. 'Breaking Loose' booklet given : 11/16/18. - Substance & Tx. History. Hx Alcohol Use: Yes. Hx Substance Use : Yes. Substance Use Type: Alcohol, Cocaine, Heroin, Marijuana. Hx Substance Use Treatment: Yes ([facility]). - Substances Abused. HEROIN. Route: Injection. Frequency: 3-6 times per week. Amount used: 15. Age of first use: 28. Date of Last Use: 11/14/18. AUGUSTO. Route: Oral. Frequency: Daily. Amount used : 2 PINTS. Age of first use: 16. Date of Last Use: 11/14/18. COCAINE. Route: Injection. Frequency: Daily. Amount used: $1000. Age of first use: 28. Date of Last Use: 11/14/18
[2018-11-17 09:54] VITALS: BP 122/75; PULSE 71; TEMP 97.4
[2018-11-17] MEDS ORDERED: METHADONE HCL 5 MG TABLET (FOR DETOX USE ONLY) PO SCH (10:00)
[2018-11-17] MEDS: METHOCARBAMOL 750 MG TABLET PO SCH (10:30)
[2018-11-17] MEDS: PRENATAL VITAMINS W/ FOLIC ACID TABLET (FP) PO SCH (10:30)
[2018-11-17] MEDS: DOCUSATE SODIUM 100 MG CAPSULE (FP) PO SCH (10:30)
[2018-11-17] MEDS: amLODIPine BESYLATE 10 MG TABLET (FP) PO SCH (10:30)
[2018-11-17] MEDS: HYDROCHLOROTHIAZIDE 25 MG TABLET (FP) PO SCH (10:30)
[2018-11-17] MEDS: NICOTINE 21 MG/24 HOURS TOPICAL PATCH TD SCH (10:34)
--- NOTE | 2018-11-17 11:07 | PN ---
[facility] CIWA - CIWA Score Nausea/Vomitin-No Nausea/No Vomiting Muscle Tremors: 2 Anxiety: 1-Mildly Anxious Agitation: 3 Paroxysmal Sweats: 1-Minimal Palms Moist Orientation: 0-Oriented Tacttile Disturbances: 0-None Auditory Disturbances: 0-None Visual Disturbances: 0-None Headache: 2-Mild CIWA-Ar Total Score: 9 BHS COWS - Scale Resting Pulse: 0= [place] 80 or Below Sweatin= Chills/Flushing Restless Observation: 0= Sits Still Pupil Size: 0= Normal to Room Light Bone or Joint Aches: 1= Mild Discomfort Runny Nose/ Eye Tearin= Nasal Congestion GI Upset > 30mins: 1= Stomach Cramp Tremor Observation of Outstretched Hands: 1= Tremor [place], Not Seen Yawning Observation: 2= >3x During Session Anxiety or Irritability: 2=Irritable/Anxious Goose Flesh Skin: 0=Smooth Skin COWS Score: 9 BHS Progress Note (SOAP) Subjective: irritable agitative tremor body aches sweating restlessness patient verbally threatening a female patient aggressive gesture toward female patient Objective: 11/17/18 11:09 Vital Signs Temperature 97.4 F L 11/17/18 09:53 Pulse Rate 71 11/17/18 09:53 Respiratory Rate 18 11/17/18 09:53 Blood Pressure 122/75 11/17/18 09:53 O2 Sat by Pulse Oximetry (%) Laboratory Last Values WBC 5.7 K/mm3 (4.0-10.0) 11/16/18 07:00 RBC 4.82 M/mm3 (4.00-5.60) 11/16/18 07:00 Hgb 12.5 GM/dL (11.7-16.9) 11/16/18 07:00 Hct 40.8 % (35.4-49) 11/16/18 07:00 MCV 84.8 fl (80-96) 11/16/18 07:00 MCH 26.0 pg (25.7-33.7) 11/16/18 07:00 MCHC 30.7 g/dl (32.0-35.9) L 11/16/18 07:00 RDW 15.0 % (11.9-15.9) 11/16/18 07:00 Plt Count 207 K/MM3 (134-434) 11/16/18 07:00 MPV 10.4 fl (7.5-11.1) 11/16/18 07:00 Sodium 143 mmol/L (136-145) 11/16/18 07:00 Potassium 4.4 mmol/L (3.5-5.1) 11/16/18 07:00 Chloride 109 mmol/L (98-107) H 11/16/18 07:00 Carbon Dioxide 27 mmol/L (21-32) 11/16/18 07:00 Anion Gap 7 MMOL/L (8-16) L 11/16/18 07:00 BUN 19 mg/dL (7-18) H 11/16/18 07:00 Creatinine 0.9 mg/dL (0.55-1.3) 11/16/18 07:00 Creat Clearance w eGFR > 60 (>60) 11/16/18 07:00 Random Glucose 83 mg/dL (74-106) 11/16/18 07:00 Calcium 8.7 mg/dL (8.5-10.1) 11/16/18 07:00 Total Bilirubin 0.4 mg/dL (0.2-1) 11/16/18 07:00 AST 12 U/L (15-37) L 11/16/18 07:00 ALT 16 U/L (13-61) 11/16/18 07:00 Alkaline Phosphatase 96 U/L (45-117) 11/16/18 07:00 Total Protein 6.2 g/dl (6.4-8.2) L 11/16/18 07:00 Albumin 3.0 g/dl (3.4-5.0) L 11/16/18 07:00 Urine Color Yellow 11/16/18 11:30 Urine Appearance Clear 11/16/18 11:30 Urine pH 6.0 (5.0-8.0) 11/16/18 11:30 Ur Specific [place] 1.021 (1.010-1.035) 11/16/18 11:30 Urine Protein Negative (NEGATIVE) 11/16/18 11:30 Urine Glucose (UA) Negative (NEGATIVE) 11/16/18 11:30 Urine Ketones Negative (NEGATIVE) 11/16/18 11:30 Urine Blood Negative (NEGATIVE) 11/16/18 11:30 Urine Nitrite Negative (NEGATIVE) 11/16/18 11:30 Urine Bilirubin Negative (<2.0 mg/dL) 11/16/18 11:30 Urine Urobilinogen Negative mg/dL (0.2-1.0) 11/16/18 11:30 Ur Leukocyte Esterase Negative (NEGATIVE) 11/16/18 11:30 RPR Titer Nonreactive (NONREACTIVE) 11/16/18 07:00 lab noted Assessment: 11/17/18 11:09 withdrawal sx 11/17/18 11:10 violent aggressive toward peers counselors, nurses, and medical provider met and discussed that the patient disturbed therapeutic environment as well as the safety of other patients patient agrees to star [facility] on 6N and follow unit role and regulations Plan: continue detox
--- NOTE | 2018-11-17 12:28 | PN ---
[facility] Progress Note Note: pt became irrate, defiant, refusing to follow rules of the unit. Pt became threatening and states he will hurt all the staff on this unit. Nursing staff, roofing plant supervisor, medical (all disciplines) were involved and discussed that this pt will be involuntary discharge and referred to outpatient rehab [facility] or [facility]. Aleksandar MARCUS was called by our security to assist with threatening verbal accusation pt was stating. Pt escorted off the unit by security and [employer].
--- NOTE | 2018-11-17 12:29 | DS ---
[facility] Detox Discharge Summary Admission Date: 11/15/18 - History Present History: Alcohol Dependence, Opioid Dependence - Physical Exam Results Vital Signs: Vital Signs Temperature 97.4 F L 11/17/18 09:53 Pulse Rate 71 11/17/18 09:53 Respiratory Rate 18 11/17/18 09:53 Blood Pressure 122/75 11/17/18 09:53 O2 Sat by Pulse Oximetry (%) - Treatment Hospital Course: Discharged Condition Good - Medication Discharge Medications: Ambulatory Orders Baclofen 20 mg PO TID 09/10/18 Docusate Sodium [Colace] 100 mg PO BID 09/10/18 Methocarbamol [Robaxin -] 750 mg PO BID 09/10/18 Amlodipine Besylate [Norvasc -] 10 mg PO DAILY #14 tablet 09/14/18 Hydrochlorothiazide [Hctz -] 25 mg PO DAILY 11/15/18 Oxycodone HCl [Oxycodone HCl ER] 30 mg PO Q8H 11/15/18 - AMA Did Patient Leave Against Medical Advice: No (Involuntary discharge )
[2018-11-18] MEDS ORDERED: chlordiazePOXIDE 5 MG CAPSULE PO SCH (05:00)
[2018-11-18] MEDS ORDERED: METHADONE HCL 5 MG TABLET (FOR DETOX USE ONLY) PO SCH (10:00)
[2018-11-19] MEDS ORDERED: chlordiazePOXIDE HCL 10 MG CAPSULE PO SCH (05:00)
[2018-11-20] MEDS ORDERED: METHADONE HCL 10 MG TABLET (FOR DETOX USE ONLY) PO SCH (10:00)
[2018-11-21] MEDS ORDERED: METHADONE HCL 10 MG TABLET (FOR DETOX USE ONLY) PO SCH (06:00)
== END 2018-11-17 12:15 | disposition left against medical advice (07) | DRG 773 ==
LOC: YASAS 13:40 → Y3N 23:43 → Y6N 11-17 11:17
PROC: HZ2ZZZZ Detoxification Services for Substance Abuse Treatment (ICD-10-PCS; principal; 2018-11-15)
DX: F11.23 Opioid dependence with withdrawal (principal); F10.230 Alcohol dependence with withdrawal, uncomplicated; F14.20 Cocaine dependence, uncomplicated; F17.210 Nicotine dependence, cigarettes, uncomplicated; F91.8 Other conduct disorders; I10 Essential (primary) hypertension; M17.0 Bilateral primary osteoarthritis of knee; J45.909 Unspecified asthma, uncomplicated; R26.81 Unsteadiness on feet; E66.9 Obesity, unspecified; Z68.38 Body mass index [BMI] 38.0-38.9, adult; Z99.3 Dependence on wheelchair; Z87.438 Personal history of other diseases of male genital organs
CPT/HCPCS: 36415; 80053; 81003; 85027; 86593; J0735

== ENCOUNTER 2018-11-15 15:41 | Emergency (ER) | payer OTHER ==
--- NOTE | 2018-11-15 15:56 | PDOC ---
History of Present Illness - General Chief Complaint: Lethargy Stated Complaint: EVALUATION Time Seen by Provider: 11/15/18 15:55 History Source: Patient Exam Limitations: Clinical Condition, Intoxication - History of Present Illness Initial Comments: Pt is a 58 yo M, with PMH of HTN and polysubstance abuse (EtOH, heroin, cocainepresenting from [address] [place] [address] after being lethargic while presenting for detox. Pt was provided 0.8 mg IM naloxone, with minimal response. Pt cannot provide a history due to intoxication. Pt has medication bag, with full bottles of robaxin and 30 mg oxycodone. 11/15/18 16:56 Pt awoke after 1 mg IM narcan, stating he "was tired because I've been doing drugs for 2 days. I went to a [employer] party and have been smoking crack cocaine, but I don't know what else I took". Pt very aggressive and not cooperative with staff. 11/15/18 17:05 Past History - Travel Traveled outside of the country in the last 30 days: No Close contact w/someone who was outside of country & ill: No - Past Medical History Allergies/Adverse Reactions: Allergies Allergy/AdvReac Type Severity Reaction Status Date / Time No Known Allergies Allergy Verified 09/10/18 20:53 Home Medications: Ambulatory Orders Baclofen 20 mg PO TID 09/10/18 Docusate Sodium [Colace] 100 mg PO BID 09/10/18 Methocarbamol [Robaxin -] 750 mg PO BID 09/10/18 Amlodipine Besylate [Norvasc -] 10 mg PO DAILY #14 tablet 09/14/18 Hydrochlorothiazide [Hctz -] 25 mg PO DAILY 11/15/18 Oxycodone HCl [Oxycodone HCl ER] 30 mg PO Q8H 11/15/18 Anemia: No Asthma: No Cancer: No Cardiac Disorders: No CVA: No COPD: No CHF: No Dementia: No Diabetes: No GI Disorders: No Disorders: No HTN: Yes (ON MEDS) Hypercholesterolemia: No Kidney Stones: No Liver Disease: No Seizures: No Thyroid Disease: No - Surgical History Abdominal Surgery: No Appendectomy: No Cardiac Surgery: No Cholecystectomy: No Lung Surgery: Yes (COLLAPSE LT LUNG 1987) Neurologic Surgery: No Orthopedic Surgery: No - Reproductive History Testicular Surgery: No - Suicide/Smoking/Psychosocial Hx Smoking History: Current every day smoker Have you smoked in the past 12 months: Yes Number of Cigarettes Smoked Daily: 10 Cigars Per Day: 0 'Breaking Loose' booklet given: 09/10/18 Hx Alcohol Use: Yes Drug/Substance Use Hx: Yes Substance Use Type: Alcohol, Cocaine, Heroin Hx Substance Use Treatment: Yes (DOES NOT RECALL) Review of Systems - Review of Systems Able to Perform ROS?: No (intoxicated) Is the patient limited Kinyarwanda proficient: Yes *Physical Exam - Physical Exam General Appearance: Yes: Nourished, Appropriately Dressed, Obese. No: Apparent Distress HEENT: positive: EOMI, Normal ENT Inspection, Normal Voice, Pharynx Normal, Hearing Grossly Normal, Other (poor dentition). negative: JUAN (constricted pupils), Scleral Icterus (R), Scleral Icterus (L), Pharyngeal Erythema, Tonsillar Exudate, Tonsillar Erythema, Rhinorrhea Neck: positive: Trachea midline, Normal Thyroid, Supple. negative: Tender, Rigid, Decreased range of motion, Lymphadenopathy (R), Lymphadenopathy (L), Rigidity Respiratory/Chest: positive: Lungs Clear, Normal Breath Sounds. negative: Chest Tender, Respiratory Distress, Accessory Muscle Use, Crackles, Wheezing Cardiovascular: positive: Regular Rhythm, Regular Rate, S1, S2, Edema (mild b/l pitting edema to mid shins). negative: JVD, Murmur Vascular Pulses: Carotid (R): 4+, Carotid (L): 4+ Gastrointestinal/Abdominal: positive: Normal Bowel Sounds, Flat, Soft. negative : Tender, Organomegaly, Pulsatile Mass, Distended, Guarding, Rebound Rectal Exam: positive: deferred Lymphatic: negative: Adenopathy, Tenderness Musculoskeletal: positive: Normal Inspection. negative: CVA Tenderness Extremity: positive: Normal Capillary Refill, Normal Inspection, Normal Range of Motion, Pelvis Stable, Pedal Edema (mild b/l pitting edema to mid shins). negative: Tender Integumentary: positive: Normal Color, Dry, Warm. negative: Jaundice, Clammy, Diaphoresis, Petechiae, Rash Neurologic: positive: Alert (opens eyes to tactile stimuli), Normal Response, Motor Strength 5/5, Respond to painful stimul, Responsive. negative: transfer table operator II- XII NML intact (unable to assess as uncooperative/intoxicated), Fully Oriented ( unable to assess), Normal Mood/Affect, EOM Palsy, Facial Droop, Numbness Medical Decision Making - Medical Decision Making Pt was seen at bedside, also will be seen by attending Dr. Davies. Pt presenting from [address] [place] [address] after being lethargic while presenting for detox. Pt was provided 0.8 mg IM naloxone, with minimal response. Pt cannot provide a history due to intoxication. Pt has medication bag, with full bottles of robaxin and 30 mg oxycodone. PE showed constricted pupils. Pt very lethargic, but will wake to tactile stimuli. Pt only able to answer in one or two word sentences before falling asleep again. Vitals stable, pt afebrile. Likely intoxication (pt had robaxin and 30 mg oxycodone bottles present with him), minimal concern for infection (meningitis) as pt had no meningeal signs on exam, afebrile. [facility] notes do not report any falls and pt had been supervised at [facility] since presentation for detox. Provided 2 mg IM for improvement of lethargy, likely opiate intoxication. Will continue to reassess pt and monitor for symptomatic improvement/clinical sobriety so we can get a better history from the pt. 11/15/18 16:03 IM naloxone needed to be called from pharmacy. Nursing staff administering medications. Will reassess pt. 11/15/18 16:39 Pt awake after 1 mg IM narcan. Pt asking to leave. Will continue to assess for clinical sobriety, so he can return to [facility] or discharge. 11/15/18 17:06 Pt has been awake intermittently in department, asking for food. 11/15/18 17:36 Pt sleeping, stable vitals. Has asked for urinal and has been able to change his clothes on his own. Will reassess when pt is more awake. 11/15/18 18:58 Pt is awake, has been able to tolerate PO intake in the department. Desires to go back to [facility]. Calling [facility] for transfer. 11/15/18 20:21 [facility] has saved a bed for the pt. Calling security to arrange transport. Pt is safe for discharge. 11/15/18 20:48 *DC/Admit/Observation/Transfer Diagnosis at time of Disposition: Polysubstance abuse, Cocaine abuse, uncomplicated Opioid overdose Qualifiers: Encounter type: initial encounter Injury intent: accidental or unintentional Qualified Code(s): T40.2X1A - Poisoning by other opioids, accidental ( unintentional), initial encounter - Discharge Dispostion Disposition: ASSISTED FACILITY Condition at time of disposition: Improved Decision to Admit order: No - Referrals - Patient Instructions Printed Discharge Instructions: Getting Treatment for Drug Addiction Additional Instructions: You were seen in the ER today for intoxication, and you improved after administering narcan. Please follow-up with your primary care doctor within 1-2 days to discuss your visit and make sure your symptoms have improved. Please report immediately to [facility] for detox. Please return to the ER if you have any further confusion or lethargy, changes in your behavior or speech, development of fevers or chills, loss of consciousness, inability to tolerate food or fluids, or any other concerns. - Post Discharge Activity
[2018-11-15 16:00] VITALS: TEMP 98.3; BMI 38.1
--- NOTE | 2018-11-15 16:24 | PDOC ---
Attending Attestation - Resident Resident Name: Fiona Lance - ED Attending Attestation I have performed the following: I have examined & evaluated the patient, The case was reviewed & discussed with the resident, I agree w/resident's findings & plan, Exceptions are as noted - HPI HPI: 11/15/18 16:23 58 y M hx of substance abuse, htn sent from [facility] for evaluation of AMS, was getting evaluated for detox. Was given 0.8mg narcan with minimal improvement. LImited history from pt due to his extreme somnolence. - Physicial Exam PE: 11/15/18 17:11 GENERAL: The patient is somnolent but arousable with repetitive stimulus, Nontoxic - in no acute distress. HEAD: Normocephalic, atraumatic. EYES: Pinpoint pupils bilaterally ENT: Normal voice, Moist mucous membranes. NECK: Normal range of motion, supple LUNGS: Breath sounds equal, clear to auscultation bilaterally. No wheezes, no rhonchi, no rales. HEART: Regular rate and rhythm, normal S1 and S2 without murmur, rub or gallop. ABDOMEN: Soft, nontender No guarding, no rebound. . No CVA tenderness EXTREMITIES: Normal range of motion, NEUROLOGICAL: No facial assymetry, Normal speech, PSYCH: Normal mood, normal affect. SKIN: Warm, Dry, normal turgor, - Medical Decision Making 11/15/18 17:09 pt given narcan here woke up, angry and agitated stating he was at a '[employer]' states he isnt laz what he took denies any complaints, states he wasnt to leave and doesnt even want detox anyomre will defer labs, will continue to observe the pt. if he is awake after 2 hrs can dc him back to [facility] <Niko Davies - Last Filed: 11/15/18 17:11> - HPI HPI: 11/15/18 19:02 The patient is a 58 year old male with a significant past medical history of hypertension and chronic leg pain who presents to the emergency department via EMS from [facility] with lethargy since earlier today. As per EMS, the patient went to [facility] today for detox. It is noted that the patient received 0.8 narcan by [facility]. The patient is arousable on exam. Further patient history is limited secondary to patient status. Documentation prepared by Giulia Rodrigues, acting as center medical specialist for Niko Davies MD. <Giulia Rodrigues - Last Filed: 11/15/18 19:02>
[2018-11-15] MEDS ORDERED: NALOXONE HCL 1 MG/ML ML IM ONE (16:28)
[2018-11-15 19:13] VITALS: BP 152/93; PULSE 70
== END 2018-11-15 23:10 | disposition other institution (70) ==
LOC: JER 15:41
PROC: 3E023GC Introduction of Other Therapeutic Substance into Muscle, Percutaneous Approach (ICD-10-PCS; principal; 2018-11-15)
DX: T40.1X1A Poisoning by heroin, accidental (unintentional), initial encounter (principal); R40.0 Somnolence; F10.10 Alcohol abuse, uncomplicated; F14.10 Cocaine abuse, uncomplicated; Y92.89 Other specified places as the place of occurrence of the external cause
CPT/HCPCS: 99282-25

== ENCOUNTER 2019-04-04 08:22 | Inpatient (IN) | payer OTHER ==
[2019-04-04 09:37] VITALS: BMI 38.5
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
[2019-04-04] MEDS ORDERED: MAGNESIUM CITRATE 300 ML BOTTLE PO PRN (11:37)
[2019-04-04] MEDS ORDERED: guaiFENesin 200 MG/10 ML 10 ML UNIT-DOSE CUPS PO PRN (11:37)
[2019-04-04] MEDS ORDERED: MAGNESIUM HYDROX 2400MG/30ML ORAL SUSPENSION 30 ML CUP PO PRN (11:37)
[2019-04-04] MEDS ORDERED: MENTHOL/PHENOL 1 EACH UD MM PRN (11:37)
[2019-04-04] MEDS ORDERED: P-EPHED 60MG/TRIPROLIDI 2.5MG TABLET PO PRN (11:37)
[2019-04-04] MEDS ORDERED: MAG HYDROX/AL HYDROX/SIMETH 30 ML UNIT-DOSE CUP PO PRN (11:37)
[2019-04-04] MEDS ORDERED: NICOTINE POLACRILEX 2 MG GUM BUC PRN (11:37)
[2019-04-04] MEDS: cloNIDine HCL 0.1 MG TABLET PO SCH ×2 (14:12→21:06)
[2019-04-04] MEDS: HYDROCHLOROTHIAZIDE 25 MG TABLET (FP) PO SCH (14:13)
[2019-04-04] MEDS: amLODIPine BESYLATE 10 MG TABLET (FP) PO SCH (14:13)
[2019-04-04] MEDS: BUPRENORPHINE/NALOXONE 8 MG/2 MG FILM PACKET SL SCH (14:13)
[2019-04-04 15:42] LABS: ALBUMIN 3.5 g/dl (3.4-5.0); BILIRUBIN,TOTAL 0.2 mg/dL (0.2-1); CALCIUM 9.4 mg/dL (8.5-10.1); CREATININE 0.9 mg/dL (0.55-1.3); POTASSIUM 4.8 mmol/L (3.5-5.1)
[2019-04-04 15:45] LABS: HEMATOCRIT 41.1 % (35.4-49); HEMOGLOBIN 13.1 GM/dL (11.7-16.9); MCH 26.4 pg (25.7-33.7); MCHC 31.9 g/dl (32.0-35.9); MEAN CELL VOLUME 82.9 fl (80-96); PLATELET COUNT 215 K/MM3 (134-434); RBC 4.95 M/mm3 (4.00-5.60); RDW 15.3 % (11.9-15.9); WHITE BLOOD COUNT 5.3 K/mm3 (4.0-10.0)
[2019-04-04 17:38] LABS: URINE APPEARANCE CLEAR; URINE BILIRUBIN NEGATIVE (NEGATIVE); URINE COLOR YELLOW; URINE GLUCOSE (UA) NEGATIVE (NEGATIVE); URINE KETONE NEGATIVE (NEGATIVE); URINE LEUK ESTERASE NEGATIVE (NEGATIVE); URINE NITRITE NEGATIVE (NEGATIVE); URINE PROTEIN NEGATIVE (NEGATIVE)
[2019-04-04] MEDS: DOCUSATE SODIUM 100 MG CAPSULE (FP) PO SCH (21:06)
[2019-04-04] MEDS: THIAMINE HCL 100 MG TABLET (FP) PO SCH (21:06)
[2019-04-04] MEDS ORDERED: MELATONIN 5 MG TABLETS PO PRN (22:00)
[2019-04-05] MEDS: cloNIDine HCL 0.1 MG TABLET PO SCH ×3 (06:37→21:00)
[2019-04-05] MEDS: DOCUSATE SODIUM 100 MG CAPSULE (FP) PO SCH ×2 (09:37→21:00)
[2019-04-05] MEDS: PRENATAL VITAMINS W/ FOLIC ACID TABLET (FP) PO SCH (09:38)
[2019-04-05] MEDS: BUPRENORPHINE/NALOXONE 8 MG/2 MG FILM PACKET SL SCH (09:38)
[2019-04-05] MEDS: HYDROCHLOROTHIAZIDE 25 MG TABLET (FP) PO SCH (09:38)
[2019-04-05] MEDS: amLODIPine BESYLATE 10 MG TABLET (FP) PO SCH (09:38)
[2019-04-05] MEDS: hydrOXYzine PAMOATE 25 MG CAPSULE (FP) PO PRN ×2 (15:29→23:25)
[2019-04-05] MEDS: THIAMINE HCL 100 MG TABLET (FP) PO SCH (21:00)
[2019-04-05] MEDS: IBUPROFEN 400 MG TABLET (FP) PO PRN (21:01)
[2019-04-06] MEDS: cloNIDine HCL 0.1 MG TABLET PO SCH ×3 (07:13→20:59)
--- NOTE | 2019-04-06 09:28 | PN ---
"[facility] Progress Note Note: PT IS VERY ANGRY, AGITATED AND DEMANDING HIS REGULAR DOSE OF SUBOXONE 8 MG/2MG SL TID AND WHY HE IS NOT GETTING IT FROM ADMISSION BUT WAS GIVEN ONLY ONCE A DAY . PER INFORMATION FROM H/P BELOW, PT WAS TAKING SUBOXONE CLAIMED. PT REPORTS DISCOMFORT AND CRAVINGS AND THREATENING TO SIGN OUT SINCE YESTERDAY BECAUSE FEELS LIKE HE WANTS TO USE DRUGS. REPORTS HE GETS HIS FIRST DOSE AT 6 A.M AND WAS EXPECTING TO GET IT EARLIER THAN 10 A.M MEDICATION TIME. PT WAS ADMITTED ON 04/04/19 TO REHAB FROM [facility]. TODAY IS FIRST ENCOUNTER WITH THIS PATIENT. PT WAS ASSURED HIS SUBOXONE DOSE WILL BE REVIEWED AND ORDERED ACCORDINGLY. Confidential Drug Utilization Report Search Terms: adam mead, 1960 Search Date: 04/04/2019 11:12:31 AM This report was requested by: Anne Arenas | Reference #: [id number] Others' Prescriptions Patient Name: Adam Mead Date: 1960 Address: [address] [place] [id number] Sex: Male Rx Written Rx Dispensed Drug Quantity Days Supply Prescriber Name 03/09/2019 03/16/2019 buprenorphine-naloxone 8-2 mg sl film 12 4 Sigifredo Goff 03/16/2019 03/16/2019 buprenorphine-naloxone 8-2 mg sl film 42 14 Sigifredo Goff 02/28/2019 02/28/2019 buprenorphine-naloxone 8-2 mg sl film 42 14 Wayne Graves 02/15/2019 02/16/2019 buprenorphine-naloxone 8-2 mg sl film 42 14 Wayne Graves Patient Name: Adam Mead Date: 1960 Address: [address] [place] [address] Sex: Male Rx Written Rx Dispensed Drug Quantity Days Supply Prescriber Name 02/07/2019 02/07/2019 buprenorphine-naloxone 8-2 mg sl film 14 14 Sigifredo Goff Patient Name: Adam Mead Date: 1960 Address: [address] [place] [address] Sex: Male Rx Written Rx Dispensed Drug Quantity Days Supply Prescriber Name 01/31/2019 01/31/2019 oxycodone-acetaminophen 10-325 mg tab 15 5 [facility] Patient Name: Adam Mead Date: 1960 Address: [address] [place] [address] [address] [address] Sex: Male Rx Written Rx Dispensed Drug Quantity Days Supply Prescriber Name 01/21/2019 01/23/2019 oxycodone-acetaminophen 5-325 mg tab 20 5 Saloni Sweet 11/19/2018 11/19/2018 oxycodone hcl 30 mg tablet 90 30 Greer Solis MD 09/28/2018 10/03/2018 oxycodone hcl 30 mg tablet 60 20 Hilario Leonard MD 08/31/2018 09/01/2018 oxycodone hcl 30 mg tablet 60 20 Hilario Leonard MD 06/10/2018 06/14/2018 oxycodone-acetaminophen 10-325 mg tablet 9 3 [facility] Patient Name: Adam Mead Date: 1960 Vital Signs - 24 hr 04/05/19 04/05/19 04/06/19 11:16 20:42 00:25 Pulse Rate 60 59 L Respiratory 18 Rate Blood Pressure 132/75 142/82 04/06/19 03:30 Pulse Rate Respiratory 18 Rate Blood Pressure Laboratory Tests 04/04/19 04/04/19 04/04/19 12:00 12:00 12:00 WBC 5.3 RBC 4.95 Hgb 13.1 Hct 41.1 MCV 82.9 MCH 26.4 MCHC 31.9 L RDW 15.3 Plt Count 215 MPV 11.0 Sodium 139 Potassium 4.8 Chloride 108 H Carbon Dioxide 29 Anion Gap 3 L BUN 18 Creatinine 0.9 Est GFR (CKD-EPI)AfAm 109.50 Est GFR (CKD-EPI)NonAf 94.48 Random Glucose 84 Calcium 9.4 Total Bilirubin 0.2 AST 16 ALT 33 Alkaline Phosphatase 100 Total Protein 7.0 Albumin 3.5 Urine Color Urine Appearance Urine pH Ur Specific [place] Urine Protein Urine Glucose (UA) Urine Ketones Urine Blood Urine Nitrite Urine Bilirubin Urine Urobilinogen Ur Leukocyte Esterase RPR Titer Nonreactive HIV 1&2 Antibody Screen HIV P24 Antigen 04/04/19 04/04/19 12:00 15:30 WBC RBC Hgb Hct MCV MCH MCHC RDW Plt Count MPV Sodium Potassium Chloride Carbon Dioxide Anion Gap BUN Creatinine Est GFR (CKD-EPI)AfAm Est GFR (CKD-EPI)NonAf Random Glucose Calcium Total Bilirubin AST ALT Alkaline Phosphatase Total Protein Albumin Urine Color Yellow Urine Appearance Clear Urine pH 6.0 Ur Specific [place] 1.030 Urine Protein Negative Urine Glucose (UA) Negative Urine Ketones Negative Urine Blood Negative Urine Nitrite Negative Urine Bilirubin Negative Urine Urobilinogen 1.0 Ur Leukocyte Esterase Negative RPR Titer HIV 1&2 Antibody Screen Negative HIV P24 Antigen Negative AGITATIONS & ANXIETY W/DRUG CRAVINGS SHANICE PLAN:D/W PT AND PT CHOSE THE TIMES OF ADMINISTRATION REFLECTING HOW HE TAKES IT AT HOME. PT ENCOURAGED TO REPORT TO STAFF IF TIME ADJUSTMENT IS FURTHER NEEDED DIFFERENT FROM CURRENTLY ORDERED. RESTART SUBOXONE 8 MG/2MG SL TID@0600,1400,1800 DIRECTED."
[2019-04-06] MEDS: PRENATAL VITAMINS W/ FOLIC ACID TABLET (FP) PO SCH (09:56)
[2019-04-06] MEDS: IBUPROFEN 400 MG TABLET (FP) PO PRN (09:56)
[2019-04-06] MEDS: HYDROCHLOROTHIAZIDE 25 MG TABLET (FP) PO SCH (09:56)
[2019-04-06] MEDS: amLODIPine BESYLATE 10 MG TABLET (FP) PO SCH (09:56)
[2019-04-06] MEDS: DOCUSATE SODIUM 100 MG CAPSULE (FP) PO SCH ×2 (09:57→20:59)
[2019-04-06] MEDS: BACLOFEN 10 MG TABLET (FP) PO PRN ×2 (09:57→17:52)
[2019-04-06] MEDS: hydrOXYzine PAMOATE 25 MG CAPSULE (FP) PO PRN ×3 (09:59→20:59)
[2019-04-06] MEDS ORDERED: BUPRENORPHINE/NALOXONE 8 MG/2 MG FILM PACKET SL ONE (10:00)
[2019-04-06] MEDS: BUPRENORPHINE/NALOXONE 8 MG/2 MG FILM PACKET SL SCH ×2 (14:02→17:50)
[2019-04-06] MEDS: THIAMINE HCL 100 MG TABLET (FP) PO SCH (20:59)
[2019-04-07] MEDS: IBUPROFEN 400 MG TABLET (FP) PO PRN (04:28)
[2019-04-07] MEDS: hydrOXYzine PAMOATE 25 MG CAPSULE (FP) PO PRN ×4 (05:56→21:46)
[2019-04-07] MEDS: BUPRENORPHINE/NALOXONE 8 MG/2 MG FILM PACKET SL SCH ×3 (05:56→18:36)
[2019-04-07] MEDS: cloNIDine HCL 0.1 MG TABLET PO SCH ×3 (05:57→21:45)
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
[2019-04-07] MEDS: PRENATAL VITAMINS W/ FOLIC ACID TABLET (FP) PO SCH (09:49)
[2019-04-07] MEDS: BACLOFEN 10 MG TABLET (FP) PO PRN ×3 (09:52→21:44)
[2019-04-07] MEDS: ACETAMINOPHEN 325 MG TABLET (FP) PO PRN (09:52)
[2019-04-07] MEDS: DOCUSATE SODIUM 100 MG CAPSULE (FP) PO SCH ×2 (09:56→21:44)
[2019-04-07] MEDS: HYDROCHLOROTHIAZIDE 25 MG TABLET (FP) PO SCH (12:23)
[2019-04-07] MEDS: amLODIPine BESYLATE 10 MG TABLET (FP) PO SCH (12:24)
[2019-04-07] MEDS: THIAMINE HCL 100 MG TABLET (FP) PO SCH (21:44)
[2019-04-07] MEDS: MELATONIN 5 MG TABLETS PO PRN (21:44)
[2019-04-08] MEDS: hydrOXYzine PAMOATE 25 MG CAPSULE (FP) PO PRN ×5 (01:35→21:04)
[2019-04-08] MEDS: IBUPROFEN 400 MG TABLET (FP) PO PRN ×3 (01:35→21:06)
[2019-04-08] MEDS: BUPRENORPHINE/NALOXONE 8 MG/2 MG FILM PACKET SL SCH ×3 (06:05→18:02)
[2019-04-08] MEDS: cloNIDine HCL 0.1 MG TABLET PO SCH ×3 (06:06→21:02)
[2019-04-08] MEDS: ACETAMINOPHEN 325 MG TABLET (FP) PO PRN (06:10)
[2019-04-08] MEDS: amLODIPine BESYLATE 10 MG TABLET (FP) PO SCH (09:53)
[2019-04-08] MEDS: DOCUSATE SODIUM 100 MG CAPSULE (FP) PO SCH ×2 (09:53→21:02)
[2019-04-08] MEDS: BACLOFEN 10 MG TABLET (FP) PO PRN ×2 (09:53→21:06)
[2019-04-08] MEDS: PRENATAL VITAMINS W/ FOLIC ACID TABLET (FP) PO SCH (09:54)
[2019-04-08] MEDS: HYDROCHLOROTHIAZIDE 25 MG TABLET (FP) PO SCH (09:54)
[2019-04-08] MEDS: ARTIFICIAL TEARS (POLYVINYL ALCOHOL) OPTH DROPS OD PRN (09:55)
[2019-04-08] MEDS: THIAMINE HCL 100 MG TABLET (FP) PO SCH (21:02)
[2019-04-08] MEDS: MELATONIN 5 MG TABLETS PO PRN (21:06)
[2019-04-09] MEDS: hydrOXYzine PAMOATE 25 MG CAPSULE (FP) PO PRN ×5 (03:15→23:11)
[2019-04-09] MEDS: IBUPROFEN 400 MG TABLET (FP) PO PRN ×3 (03:15→21:26)
[2019-04-09] MEDS: BUPRENORPHINE/NALOXONE 8 MG/2 MG FILM PACKET SL SCH ×3 (06:07→18:19)
[2019-04-09] MEDS: cloNIDine HCL 0.1 MG TABLET PO SCH ×3 (06:07→21:26)
[2019-04-09] MEDS: ACETAMINOPHEN 325 MG TABLET (FP) PO PRN (06:08)
[2019-04-09] MEDS: HYDROCHLOROTHIAZIDE 25 MG TABLET (FP) PO SCH (09:48)
[2019-04-09] MEDS: PRENATAL VITAMINS W/ FOLIC ACID TABLET (FP) PO SCH (09:48)
[2019-04-09] MEDS: amLODIPine BESYLATE 10 MG TABLET (FP) PO SCH (09:48)
[2019-04-09] MEDS: BACLOFEN 10 MG TABLET (FP) PO PRN ×2 (09:49→21:26)
[2019-04-09] MEDS: DOCUSATE SODIUM 100 MG CAPSULE (FP) PO SCH ×2 (09:51→21:28)
[2019-04-09] MEDS: THIAMINE HCL 100 MG TABLET (FP) PO SCH (21:26)
[2019-04-09] MEDS: MELATONIN 5 MG TABLETS PO PRN (23:11)
[2019-04-10] MEDS: hydrOXYzine PAMOATE 25 MG CAPSULE (FP) PO PRN ×5 (02:12→21:04)
[2019-04-10] MEDS: cloNIDine HCL 0.1 MG TABLET PO SCH ×3 (06:29→21:04)
[2019-04-10] MEDS: BUPRENORPHINE/NALOXONE 8 MG/2 MG FILM PACKET SL SCH ×3 (06:29→17:59)
[2019-04-10] MEDS: IBUPROFEN 400 MG TABLET (FP) PO PRN ×2 (06:33→17:58)
[2019-04-10] MEDS: DOCUSATE SODIUM 100 MG CAPSULE (FP) PO SCH ×3 (10:08→21:07)
[2019-04-10] MEDS: PRENATAL VITAMINS W/ FOLIC ACID TABLET (FP) PO SCH (10:08)
[2019-04-10] MEDS: HYDROCHLOROTHIAZIDE 25 MG TABLET (FP) PO SCH (10:08)
[2019-04-10] MEDS: amLODIPine BESYLATE 10 MG TABLET (FP) PO SCH (10:08)
[2019-04-10] MEDS: BACLOFEN 10 MG TABLET (FP) PO PRN ×2 (10:26→17:58)
--- NOTE | 2019-04-10 16:11 | PN ---
[facility] Progress Note Note: C/O BILATERAL LOWER LEG SWELLING AND ATHLETES FEET. Vital Signs 04/10/19 04/10/19 04/10/19 10:00 14:23 14:27 Pulse Rate 59 L 63 63 Blood Pressure 104/52 L 119/75 119/75 Laboratory Tests 04/04/19 04/04/19 04/04/19 12:00 12:00 12:00 WBC 5.3 RBC 4.95 Hgb 13.1 Hct 41.1 MCV 82.9 MCH 26.4 MCHC 31.9 L RDW 15.3 Plt Count 215 MPV 11.0 Sodium 139 Potassium 4.8 Chloride 108 H Carbon Dioxide 29 Anion Gap 3 L BUN 18 Creatinine 0.9 Est GFR (CKD-EPI)AfAm 109.50 Est GFR (CKD-EPI)NonAf 94.48 Random Glucose 84 Calcium 9.4 Total Bilirubin 0.2 AST 16 ALT 33 Alkaline Phosphatase 100 Total Protein 7.0 Albumin 3.5 Urine Color Urine Appearance Urine pH Ur Specific [place] Urine Protein Urine Glucose (UA) Urine Ketones Urine Blood Urine Nitrite Urine Bilirubin Urine Urobilinogen Ur Leukocyte Esterase RPR Titer Nonreactive HIV 1&2 Antibody Screen HIV P24 Antigen 04/04/19 04/04/19 12:00 15:30 WBC RBC Hgb Hct MCV MCH MCHC RDW Plt Count MPV Sodium Potassium Chloride Carbon Dioxide Anion Gap BUN Creatinine Est GFR (CKD-EPI)AfAm Est GFR (CKD-EPI)NonAf Random Glucose Calcium Total Bilirubin AST ALT Alkaline Phosphatase Total Protein Albumin Urine Color Yellow Urine Appearance Clear Urine pH 6.0 Ur Specific [place] 1.030 Urine Protein Negative Urine Glucose (UA) Negative Urine Ketones Negative Urine Blood Negative Urine Nitrite Negative Urine Bilirubin Negative Urine Urobilinogen 1.0 Ur Leukocyte Esterase Negative RPR Titer HIV 1&2 Antibody Screen Negative HIV P24 Antigen Negative EXTREMITIES:NON-PITTING EDEMA NO OPEN WOUNDS DRY,ASHY SCALY FEET. A:TINEA PEDIS JAZMYN. LOWER LEG EDEMA PLAN:ELEVATE BOTH LEGS IN BED TINACTIN CREAM APPLY TO AFFECTED FEET DIRECTED.
[2019-04-10] MEDS: THIAMINE HCL 100 MG TABLET (FP) PO SCH (21:03)
[2019-04-10] MEDS: MELATONIN 5 MG TABLETS PO PRN (21:05)
[2019-04-10] MEDS: ACETAMINOPHEN 325 MG TABLET (FP) PO PRN (21:06)
[2019-04-10] MEDS: TOLNAFTATE 1% CREAM 15 GM TUBE TP SCH (21:07)
[2019-04-11] MEDS: hydrOXYzine PAMOATE 25 MG CAPSULE (FP) PO PRN ×5 (02:27→18:02)
[2019-04-11] MEDS: BUPRENORPHINE/NALOXONE 8 MG/2 MG FILM PACKET SL SCH ×3 (06:15→17:59)
[2019-04-11] MEDS: cloNIDine HCL 0.1 MG TABLET PO SCH ×3 (06:15→21:02)
[2019-04-11] MEDS: IBUPROFEN 400 MG TABLET (FP) PO PRN ×2 (06:16→21:04)
[2019-04-11] MEDS: BACLOFEN 10 MG TABLET (FP) PO PRN ×2 (06:16→21:05)
[2019-04-11] MEDS: amLODIPine BESYLATE 10 MG TABLET (FP) PO SCH (09:53)
[2019-04-11] MEDS: PRENATAL VITAMINS W/ FOLIC ACID TABLET (FP) PO SCH (09:53)
[2019-04-11] MEDS: HYDROCHLOROTHIAZIDE 25 MG TABLET (FP) PO SCH (09:53)
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
[2019-04-11] MEDS: DOCUSATE SODIUM 100 MG CAPSULE (FP) PO SCH ×2 (10:22→21:03)
[2019-04-11] MEDS: TOLNAFTATE 1% CREAM 15 GM TUBE TP SCH ×2 (10:22→21:03)
[2019-04-11] MEDS: BENZOCAINE 20 % GEL TUBE MM PRN (10:49)
[2019-04-11] MEDS: ACETAMINOPHEN 325 MG TABLET (FP) PO PRN (14:08)
[2019-04-11] MEDS: THIAMINE HCL 100 MG TABLET (FP) PO SCH (21:02)
[2019-04-11] MEDS: MELATONIN 5 MG TABLETS PO PRN (21:03)
[2019-04-11] MEDS ORDERED: ALBUTEROL SO4 0.083% IH SOL 2.5 MG/3 ML VIAL.NEB. NEB PRN (21:49)
[2019-04-12] MEDS: hydrOXYzine PAMOATE 25 MG CAPSULE (FP) PO PRN ×3 (00:51→14:17)
[2019-04-12] MEDS: BACLOFEN 10 MG TABLET (FP) PO PRN ×3 (06:32→21:04)
[2019-04-12] MEDS: BUPRENORPHINE/NALOXONE 8 MG/2 MG FILM PACKET SL SCH ×3 (06:32→17:48)
[2019-04-12] MEDS: IBUPROFEN 400 MG TABLET (FP) PO PRN ×2 (06:33→17:48)
[2019-04-12] MEDS: cloNIDine HCL 0.1 MG TABLET PO SCH ×3 (06:33→21:04)
[2019-04-12] MEDS: ARTIFICIAL TEARS (POLYVINYL ALCOHOL) OPTH DROPS OD PRN (09:37)
[2019-04-12] MEDS: HYDROCHLOROTHIAZIDE 25 MG TABLET (FP) PO SCH (09:38)
[2019-04-12] MEDS: DOCUSATE SODIUM 100 MG CAPSULE (FP) PO SCH ×2 (09:38→21:03)
[2019-04-12] MEDS: PRENATAL VITAMINS W/ FOLIC ACID TABLET (FP) PO SCH (09:38)
[2019-04-12] MEDS: amLODIPine BESYLATE 10 MG TABLET (FP) PO SCH (09:38)
[2019-04-12] MEDS: TOLNAFTATE 1% CREAM 15 GM TUBE TP SCH ×2 (09:48→21:06)
[2019-04-12] MEDS: ALBUTEROL SO4 8 GM HFA INHALER IH PRN ×2 (13:44→17:49)
--- NOTE | 2019-04-12 18:54 | PN ---
S Progress Note Note: Called to floor b/c of chest pain. Pt states that he had "pins and needles" chest pain which lasted a few seconds. No pain now. Pt states he is under a lot of stress- with being homeless and trying to get housing. PE Vital Signs - 24 hr 04/11/19 04/12/19 04/12/19 20:12 03:30 06:27 Temperature 97.8 F Pulse Rate 62 62 Respiratory 18 20 Rate Blood Pressure 131/72 153/81 04/12/19 04/12/19 10:00 14:42 Temperature Pulse Rate 62 67 Respiratory Rate Blood Pressure 122/67 142/78 extremely obese gentleman who needs a wheelchair for mobility lungs clear heart regular, rate and rhythm a/p: chest pain likely stress related: short duration and atypical pain- no pain f/u vistaril for anxiety- dose increased f/u prn
[2019-04-12] MEDS: hydrOXYzine PAMOATE 50 MG CAPSULE (FP) PO PRN (19:13)
[2019-04-12] MEDS: THIAMINE HCL 100 MG TABLET (FP) PO SCH (21:04)
[2019-04-12] MEDS: BENZOCAINE 20 % GEL TUBE MM PRN (21:06)
[2019-04-13] MEDS: hydrOXYzine PAMOATE 50 MG CAPSULE (FP) PO PRN ×4 (01:53→21:18)
[2019-04-13] MEDS: IBUPROFEN 400 MG TABLET (FP) PO PRN ×2 (01:54→07:07)
[2019-04-13] MEDS: BUPRENORPHINE/NALOXONE 8 MG/2 MG FILM PACKET SL SCH ×3 (06:31→17:57)
[2019-04-13] MEDS: cloNIDine HCL 0.1 MG TABLET PO SCH ×3 (08:05→21:16)
[2019-04-13] MEDS: HYDROCHLOROTHIAZIDE 25 MG TABLET (FP) PO SCH (09:40)
[2019-04-13] MEDS: amLODIPine BESYLATE 10 MG TABLET (FP) PO SCH (09:40)
[2019-04-13] MEDS: DOCUSATE SODIUM 100 MG CAPSULE (FP) PO SCH ×2 (09:40→21:17)
[2019-04-13] MEDS: PRENATAL VITAMINS W/ FOLIC ACID TABLET (FP) PO SCH (09:40)
[2019-04-13] MEDS: BACLOFEN 10 MG TABLET (FP) PO PRN ×2 (09:42→17:56)
[2019-04-13] MEDS: TOLNAFTATE 1% CREAM 15 GM TUBE TP SCH ×2 (09:43→21:17)
[2019-04-13] MEDS: BENZOCAINE 20 % GEL TUBE MM PRN (09:44)
[2019-04-13] MEDS: THIAMINE HCL 100 MG TABLET (FP) PO SCH (21:16)
[2019-04-13] MEDS: MELATONIN 5 MG TABLETS PO PRN (21:18)
[2019-04-14] MEDS: BUPRENORPHINE/NALOXONE 8 MG/2 MG FILM PACKET SL SCH ×3 (06:07→18:00)
[2019-04-14] MEDS: cloNIDine HCL 0.1 MG TABLET PO SCH ×3 (07:51→21:04)
[2019-04-14] MEDS: BACLOFEN 10 MG TABLET (FP) PO PRN ×2 (09:50→17:59)
[2019-04-14] MEDS: amLODIPine BESYLATE 10 MG TABLET (FP) PO SCH (09:50)
[2019-04-14] MEDS: HYDROCHLOROTHIAZIDE 25 MG TABLET (FP) PO SCH (09:51)
[2019-04-14] MEDS: PRENATAL VITAMINS W/ FOLIC ACID TABLET (FP) PO SCH (09:51)
[2019-04-14] MEDS: hydrOXYzine PAMOATE 50 MG CAPSULE (FP) PO PRN ×3 (09:51→18:35)
[2019-04-14] MEDS: DOCUSATE SODIUM 100 MG CAPSULE (FP) PO SCH ×2 (09:51→21:05)
[2019-04-14] MEDS: TOLNAFTATE 1% CREAM 15 GM TUBE TP SCH ×2 (09:52→21:06)
--- NOTE | 2019-04-14 14:08 | PN ---
[facility] Progress Note (SOAP) Subjective: PT IS SCHEDULED TO BE DISCHARGED ON 04/17/19. PT WAS SEEN TODAY BY COUNSELOR COURTNEY MENDOZA WHO WAS IN CONTACT WITH PT'S CASE MANGER MR. REA RM OF BREAKING GROUNDS PROGRAM PH: . PT HAS BEEN REFERRED TO A COORDINATED CD AFTERCARE AT [facility]. PT WILL FOLLOW UP WITH THE MEDICAL PROVIDER OF [facility] AT SAME LOCATION [facility]NAG[facility]. APPOINTMENT HAS BEEN SECURED FOR PER COUNSELOR BY BOX PRINTER. PT ALSO HAS A [place]AL AP[place] SET UP [place] AT [place] [facility] [place]. COURTESY RX UNTIL APPOINTMENT TO CD AFTERCARE REFERRAL PLACE ELECTRONICALLY SENT TO PATIENT'S [facility] FOR RECORD CHANGER ASSEMBLER ON DISCHARGE FROM REHAB. ALERT O X 3. USES WHEELCHAIR FOR AMBULATION. Objective: 04/14/19 14:08 Vital Signs 04/14/19 06:52 Temperature 97.7 F Pulse Rate 55 L Respiratory 18 Rate Blood Pressure 116/68 Laboratory Tests 04/04/19 04/04/19 04/04/19 12:00 12:00 12:00 WBC 5.3 RBC 4.95 Hgb 13.1 Hct 41.1 MCV 82.9 MCH 26.4 MCHC 31.9 L RDW 15.3 Plt Count 215 MPV 11.0 Sodium 139 Potassium 4.8 Chloride 108 H Carbon Dioxide 29 Anion Gap 3 L BUN 18 Creatinine 0.9 Est GFR (CKD-EPI)AfAm 109.50 Est GFR (CKD-EPI)NonAf 94.48 Random Glucose 84 Calcium 9.4 Total Bilirubin 0.2 AST 16 ALT 33 Alkaline Phosphatase 100 Total Protein 7.0 Albumin 3.5 Urine Color Urine Appearance Urine pH Ur Specific Stanton Urine Protein Urine Glucose (UA) Urine Ketones Urine Blood Urine Nitrite Urine Bilirubin Urine Urobilinogen Ur Leukocyte Esterase RPR Titer Nonreactive HIV 1&2 Antibody Screen HIV P24 Antigen 04/04/19 04/04/19 12:00 15:30 WBC RBC Hgb Hct MCV MCH MCHC RDW Plt Count MPV Sodium Potassium Chloride Carbon Dioxide Anion Gap BUN Creatinine Est GFR (CKD-EPI)AfAm Est GFR (CKD-EPI)NonAf Random Glucose Calcium Total Bilirubin AST ALT Alkaline Phosphatase Total Protein Albumin Urine Color Yellow Urine Appearance Clear Urine pH 6.0 Ur Specific Stanton 1.030 Urine Protein Negative Urine Glucose (UA) Negative Urine Ketones Negative Urine Blood Negative Urine Nitrite Negative Urine Bilirubin Negative Urine Urobilinogen 1.0 Ur Leukocyte Esterase Negative RPR Titer HIV 1&2 Antibody Screen Negative HIV P24 Antigen Negative Home Medications Medication Instructions Recorded Baclofen 20 mg PO TID 09/10/18 Clonidine HCl 0.3 mg PO TID 04/04/19 Diphenhydramine [Benadryl -] 50 mg PO BID PRN 04/04/19 Polyvinyl Alcohol [Artificial 1 drop OD DAILY PRN 04/04/19 Tears] Amlodipine Besylate [Norvasc -] 10 mg PO DAILY #14 tablet 04/14/19 Buprenorphine/Naloxone [Suboxone 1 each SL DAILY #42 packet MDD 3 04/14/19 8Mg/2Mg Sl Film -] Docusate Sodium [Colace] 100 mg PO BID #30 capsule 04/14/19 Hydrochlorothiazide [Hctz -] 25 mg PO DAILY #30 tablet 04/14/19 Assessment: 04/14/19 14:08 NAD MEDICALLY STABLE Plan: D/W PT TO FOLLOW UP WITH CD AFTERCARE RECOMMENDED FOLLOW UP WITH [facility] WITH [place] [facility] PROGRAM FOLLOW UP [facility] DENTAL APPOINTMENT ON 05/05/19 AT [facility] SCHEDULED. FOLLOW UP WITH MEDICAL MANAGEMENT WITHIN 1-2 WEEKS AFTER DISCHARGE.
[2019-04-14] MEDS: IBUPROFEN 400 MG TABLET (FP) PO PRN (17:59)
[2019-04-14] MEDS: BENZOCAINE 20 % GEL TUBE MM PRN (18:01)
[2019-04-14] MEDS: THIAMINE HCL 100 MG TABLET (FP) PO SCH (21:04)
[2019-04-14] MEDS: MELATONIN 5 MG TABLETS PO PRN (21:05)
[2019-04-15] MEDS: cloNIDine HCL 0.1 MG TABLET PO SCH ×3 (05:46→21:06)
[2019-04-15] MEDS: BUPRENORPHINE/NALOXONE 8 MG/2 MG FILM PACKET SL SCH ×3 (05:47→17:58)
[2019-04-15] MEDS: IBUPROFEN 400 MG TABLET (FP) PO PRN ×3 (05:51→21:06)
[2019-04-15] MEDS: BACLOFEN 10 MG TABLET (FP) PO PRN ×2 (05:51→14:25)
[2019-04-15] MEDS: hydrOXYzine PAMOATE 50 MG CAPSULE (FP) PO PRN ×3 (05:52→21:07)
[2019-04-15] MEDS: HYDROCHLOROTHIAZIDE 25 MG TABLET (FP) PO SCH (09:33)
[2019-04-15] MEDS: amLODIPine BESYLATE 10 MG TABLET (FP) PO SCH (09:33)
[2019-04-15] MEDS: PRENATAL VITAMINS W/ FOLIC ACID TABLET (FP) PO SCH (09:33)
[2019-04-15] MEDS: DOCUSATE SODIUM 100 MG CAPSULE (FP) PO SCH ×2 (09:33→21:11)
[2019-04-15] MEDS: TOLNAFTATE 1% CREAM 15 GM TUBE TP SCH ×2 (09:34→21:09)
[2019-04-15] MEDS: THIAMINE HCL 100 MG TABLET (FP) PO SCH (21:06)
[2019-04-15] MEDS: ALBUTEROL SO4 8 GM HFA INHALER IH PRN (21:07)
[2019-04-16] MEDS: MELATONIN 5 MG TABLETS PO PRN (00:44)
[2019-04-16] MEDS: IBUPROFEN 400 MG TABLET (FP) PO PRN ×2 (05:59→18:42)
[2019-04-16] MEDS: BUPRENORPHINE/NALOXONE 8 MG/2 MG FILM PACKET SL SCH ×3 (06:00→18:42)
[2019-04-16] MEDS: cloNIDine HCL 0.1 MG TABLET PO SCH ×3 (06:00→21:00)
[2019-04-16] MEDS: hydrOXYzine PAMOATE 50 MG CAPSULE (FP) PO PRN ×4 (06:00→18:42)
[2019-04-16] MEDS: BACLOFEN 10 MG TABLET (FP) PO PRN ×2 (07:12→21:00)
[2019-04-16] MEDS: PRENATAL VITAMINS W/ FOLIC ACID TABLET (FP) PO SCH (09:35)
[2019-04-16] MEDS: HYDROCHLOROTHIAZIDE 25 MG TABLET (FP) PO SCH (09:35)
[2019-04-16] MEDS: DOCUSATE SODIUM 100 MG CAPSULE (FP) PO SCH ×2 (09:35→21:00)
[2019-04-16] MEDS: amLODIPine BESYLATE 10 MG TABLET (FP) PO SCH (09:35)
[2019-04-16] MEDS: TOLNAFTATE 1% CREAM 15 GM TUBE TP SCH ×2 (09:36→21:00)
[2019-04-16] MEDS: BENZOCAINE 20 % GEL TUBE MM PRN (09:37)
[2019-04-16] MEDS: THIAMINE HCL 100 MG TABLET (FP) PO SCH (21:00)
[2019-04-16] MEDS: ACETAMINOPHEN 325 MG TABLET (FP) PO PRN (21:01)
[2019-04-17] MEDS: hydrOXYzine PAMOATE 50 MG CAPSULE (FP) PO PRN (00:53)
[2019-04-17] MEDS: BUPRENORPHINE/NALOXONE 8 MG/2 MG FILM PACKET SL SCH (06:07)
[2019-04-17] MEDS: IBUPROFEN 400 MG TABLET (FP) PO PRN (06:07)
[2019-04-17] MEDS: BACLOFEN 10 MG TABLET (FP) PO PRN (06:08)
[2019-04-17] MEDS: cloNIDine HCL 0.1 MG TABLET PO SCH (06:13)
[2019-04-17 06:50] VITALS: TEMP 97.2
--- NOTE | 2019-04-17 09:18 | PN ---
S Progress Note Note: PT COMPLETED REHAB AND DISCHARGED TODAY SCHEDULED. ALERT O X 3. NAD. Vital Signs - 24 hr 04/16/19 04/16/19 04/17/19 10:00 21:00 06:49 Temperature 97.2 F L Pulse Rate 62 61 59 L Respiratory 18 Rate Blood Pressure 123/56 L 129/73 131/72
[2019-04-17] MEDS: TOLNAFTATE 1% CREAM 15 GM TUBE TP SCH (09:26)
[2019-04-17] MEDS: PRENATAL VITAMINS W/ FOLIC ACID TABLET (FP) PO SCH (09:26)
[2019-04-17] MEDS: amLODIPine BESYLATE 10 MG TABLET (FP) PO SCH (09:26)
[2019-04-17] MEDS: HYDROCHLOROTHIAZIDE 25 MG TABLET (FP) PO SCH (09:26)
[2019-04-17] MEDS: DOCUSATE SODIUM 100 MG CAPSULE (FP) PO SCH (09:26)
[2019-04-17 11:51] VITALS: BP 127/71; PULSE 68
== END 2019-04-17 09:30 | disposition home or self-care (01) | DRG 895 ==
LOC: YASAS 08:22 → Y5N 11:56
PROVIDERS: ADMIT Neuromusculoskeletal Medicine & OMM; ATTEND Neuromusculoskeletal Medicine & OMM
PROC: HZ42ZZZ Group Counseling for Substance Abuse Treatment, Cognitive-Behavioral (ICD-10-PCS; principal; 2019-04-04)
DX: F10.20 Alcohol dependence, uncomplicated (principal); F14.20 Cocaine dependence, uncomplicated; F11.20 Opioid dependence, uncomplicated; F19.282 Other psychoactive substance dependence with psychoactive substance-induced sleep disorder; F17.210 Nicotine dependence, cigarettes, uncomplicated; F19.24 Other psychoactive substance dependence with psychoactive substance-induced mood disorder; I10 Essential (primary) hypertension; J45.909 Unspecified asthma, uncomplicated; M17.0 Bilateral primary osteoarthritis of knee; R07.9 Chest pain, unspecified; K08.89 Other specified disorders of teeth and supporting structures; B35.3 Tinea pedis; R60.0 Localized edema; E66.9 Obesity, unspecified; Z68.38 Body mass index [BMI] 38.0-38.9, adult; R26.89 Other abnormalities of gait and mobility; Z74.09 Other reduced mobility; Z99.3 Dependence on wheelchair; Z59.0 Homelessness
CPT/HCPCS: 36415; 80053; 81003; 85027; 86593; 87389; 94640; J0475; J0735